=== PATIENT | female | born 1955 | race Two or more races ===

== ENCOUNTER 2022-11-04 10:42 | Emergency (ER) | payer MEDICARE, OTHER ==
[~2022-11-04] VITALS: Ht 157.5 cm; Wt 68.0 kg
--- NOTE | 2022-11-04 11:00 | NUR ---
[facility] C/O WORSENING MID-BACK, SHOULDER & NECK PAIN S/P FELL OUT OF BED LAST 11/01
[2022-11-04] MEDS ORDERED: LIDOCAINE 5% (PATCH) 1 EA PATCH TP SCH (11:30)
[2022-11-04] MEDS ORDERED: CYCLOBENZAPRINE 10 MG TABLET PO ONE (11:30)
[2022-11-04] MEDS ORDERED: ACETAMINOPHEN 325 MG TABLET PO ONE (11:30)
[2022-11-04] MEDS ORDERED: ACETAMINOPHEN 325 MG TABLET ONE (11:36)
[2022-11-04] MEDS ORDERED: LIDOCAINE 5% (PATCH) 1 EA PATCH TP ONE (11:36)
[2022-11-04] MEDS ORDERED: CYCLOBENZAPRINE 10 MG TABLET ONE (11:37)
--- NOTE | 2022-11-04 12:15 | NUR ---
[facility] CALLED FOR TRANSPORT, ETA 30-45 MIN
--- NOTE | 2022-11-04 12:22 | NUR ---
facility made aware of the patients CT. ready to go back if discharge
[2022-11-04] MEDS ORDERED: CYCL5TAB PO (12:33)
--- NOTE | 2022-11-04 13:26 | NUR ---
transported back to facility via [facility]. stable condition.
[2022-11-04 13:27] VITALS: BP 152/69
== END 2022-11-04 13:27 ==
LOC: ER 10:42
DX: S39.012A Strain of muscle, fascia and tendon of lower back, initial encounter (principal); I10 Essential (primary) hypertension; Z88.2 Allergy status to sulfonamides; Z88.6 Allergy status to analgesic agent; Z91.040 Latex allergy status; W06.XXXA Fall from bed, initial encounter; Y93.89 Activity, other specified; Y92.099 Unspecified place in other non-institutional residence as the place of occurrence of the external cause; Y99.8 Other external cause status
CPT/HCPCS: 72131-TC

== ENCOUNTER 2023-07-23 08:31 | Inpatient (IN) | payer BC, OTHER ==
[~2023-07-23] VITALS: Ht 157.5 cm; Wt 70.3 kg
[~2023-07-23 08:31] MED LIST: ATOR40TA PO; CARB1TAB21 PO; CHLO25TA2 PO; CLON0.1T PO; CLOT15CR5 TP; CYCL5TAB PO; DIVA-78 PO; DIVA250T47 PO; DOCU-141 PO; EMPA10TA PO; EPIN0.3A4 IM; GLIM4TAB37 PO; HYDR-3972 PO; HYDR-4076 PO; LORA-259 PO; LOSA100T31 PO; METF-440 PO; MIRT-90 PO; NITR100C6 PO; NYST15CR TP; PREG50CA PO
[2023-07-23] MEDS ORDERED: IV NS 0.9% 1,000 ML BAG IV ONE (09:30)
[2023-07-23] MEDS ORDERED: MORPHINE SULFATE INJ 2 MG/ML DISP.SYRIN IV ONE (09:30)
[2023-07-23] MEDS ORDERED: MORPHINE SULFATE INJ 4 MG/ML DISP.SYRIN ONE (09:32)
[2023-07-23 09:36] LABS: BASOPHILS % (AUTO) 0.5 % (0.0-2.0); EOSINOPHILS # (AUTO) 0.1 K/uL (0.0-0.7); EOSINOPHILS % (AUTO) 1.7 % (0.0-6.0); HEMATOCRIT 37 % (33-45); HEMOGLOBIN 11.8 g/dL (11.5-14.8); LYMPHOCYTES # (AUTO) 1.8 K/uL (0.8-4.8); LYMPHOCYTES % (AUTO) 31.7 % (20.0-44.0); MEAN CORPUSCULAR HEMOGLOBIN 28 PG (26.0-33.0); MEAN CORPUSCULAR HGB CONC 32 g/dl (31.0-36.0); MEAN CORPUSCULAR VOLUME 88 fL (82-100); MONOCYTES # (AUTO) 0.4 K/uL (0.1-1.30); MONOCYTES % (AUTO) 7.1 % (2.0-12.0); NEUTROPHILS # (AUTO) 3.3 K/uL (1.8-8.9); PLATELET COUNT (AUTO) 253 K/uL (150-450); RED BLOOD CELL COUNT(AUTO) 4.17 MIL/uL (4.0-5.2); RED CELL DISTRIBUTION WIDTH 15.1 % (11.5-15.0); WHITE BLOOD COUNT (AUTO) 5.7 K/uL (4.3-11.0)
[2023-07-23 09:38] LABS: APPEARANCE,URINE CLEAR (CLEAR); BILIRUBIN,URINE NEGATIVE (NEGATIVE); BLOOD, URINE NEGATIVE Ery/uL (NEGATIVE); COLOR,URINE YELLOW (YELLOW); KETONES,URINE NEGATIVE (NEGATIVE); LEUKOCYTE ESTERASE ,URINE TRACE (NEGATIVE); NITRITE, URINE NEGATIVE (NEGATIVE); PROTEIN,URINE TRACE mg/dl (NEGATIVE); UGLUCOSE 3+ mg/dL (NEGATIVE); UROBILINOGEN,URINE 0.2 EU/dL (0.2)
[2023-07-23 09:41] LABS: ADD URINE CULTURE NO; BACTERIA,URINE Rare /HPF (None Seen); RBC,URINE 0-2 /HPF (0-2); SQUAMOUS EPITHELIAL CELL,UR Few /HPF (None Seen)
[2023-07-23 09:54] LABS: CALCIUM, SERUM 9.5 mg/dL (8.5-10.1); CREATININE 1.4 mg/dL (0.6-1.3); POTASSIUM 4.1 mmol/L (3.5-5.1)
[2023-07-23 09:59] LABS: ALBUMIN 3.5 g/dL (3.4-5.0); BILIRUBIN,DIRECT 0.1 mg/dL (0.0-0.2); BILIRUBIN,TOTAL 0.4 mg/dL (0.2-1.0); TOTAL PROTEIN, SERUM 7.7 g/dL (6.4-8.2)
[2023-07-23] MEDS ORDERED: SENN-261 PO (10:57)
[2023-07-23] MEDS ORDERED: INSU100V7 SQ (10:57)
[2023-07-23] MEDS ORDERED: HYDR-500 PO (10:57)
[2023-07-23] MEDS ORDERED: EMPA10TA PO (10:57)
[2023-07-23] MEDS ORDERED: ONDA4TAB11 PO (10:57)
[2023-07-23] MEDS ORDERED: OXYC5TAB3 PO (10:57)
[2023-07-23] MEDS ORDERED: TACR100O2 TP (10:57)
[2023-07-23] MEDS ORDERED: ENOXAPARIN SODIUM 40 MG/0.4 ML DISP.SYRIN SQ ONE ×2 (11:00→11:47)
[2023-07-23 16:00] VITALS: BP 131/82; TEMP 97.5; O2SAT 98
[2023-07-23] MEDS ORDERED: DEXTROSE 50%-WATER 50 ML DISP.SYRIN IV PRN ×2 (16:00→18:00)
[2023-07-23] MEDS ORDERED: INSULIN REGULAR, HUMAN 100 UNIT/ML 3 ML VIAL SQ PRN (16:00)
[2023-07-23] MEDS: MORPHINE SULFATE INJ 4 MG/ML DISP.SYRIN IV PRN ×2 (16:06→20:46)
[2023-07-23] MEDS ORDERED: BLOOD SUGAR DIAGNOSTIC 1 EACH STRIP IN SCH (17:30)
[2023-07-23] MEDS ORDERED: ONDANSETRON HCL/PF 4 MG/2 ML VIAL IVP PRN (18:00)
[2023-07-23] MEDS: IV NS 0.9% 1,000 ML IV PRN (18:00)
[2023-07-23] MEDS ORDERED: ACETAMINOPHEN 325 MG TABLET PO PRN (18:00)
[2023-07-23] MEDS ORDERED: TEMAZEPAM 15 MG CAPSULE PO PRN (18:00)
[2023-07-23] MEDS ORDERED: Z GUARD REMEDY 4 OZ OINT TP PRN (18:00)
[2023-07-23] MEDS ORDERED: MAGNESIUM HYDROXIDE 30 ML UDC PO PRN (18:00)
[2023-07-23] MEDS ORDERED: MAG HYDROX/AL HYDROX/SIMETH 30 ML UDC PO PRN (18:00)
[2023-07-23] MEDS: ENOXAPARIN SODIUM 30 MG/0.3 ML DISP.SYRIN SQ SCH (18:00)
[2023-07-23] MEDS ORDERED: ONDANSETRON 4 MG TAB.RAPDIS PO PRN (18:30)
[2023-07-23] MEDS ORDERED: LORAZEPAM 1 MG TABLET PO PRN (18:30)
[2023-07-23] MEDS ORDERED: HOME MED (JARDIANCE 10MG) XX SCH (18:30)
[2023-07-23] MEDS ORDERED: DOCUSATE SODIUM 100 MG CAPSULE PO PRN (18:30)
[2023-07-23] MEDS ORDERED: hydrOXYzine 10 MG TABLET PO PRN (18:30)
[2023-07-23] MEDS ORDERED: CYCLOBENZAPRINE 10 MG TABLET PO PRN (18:30)
[2023-07-23 20:00] VITALS: BP 155/74; TEMP 97.7; O2SAT 100
[2023-07-23] MEDS: MIRTAZAPINE 15 MG TABLET PO SCH (21:09)
[2023-07-23] MEDS: ATORVASTATIN 40 MG TABLET PO SCH (21:09)
[2023-07-23] MEDS: INSULIN REGULAR, HUMAN 100 UNIT/ML 3 ML VIAL SQ PRN (21:13)
[2023-07-23] MEDS: INSULIN GLARGINE, 100 UNIT/ML CARTRIDGE SQ SCH (21:14)
[2023-07-23] MEDS: BLOOD SUGAR DIAGNOSTIC 1 EACH STRIP IN SCH (21:17)
[2023-07-24 04:00] VITALS: BP 120/67; TEMP 97.7; O2SAT 99
[2023-07-24] MEDS: IV NS 0.9% 1,000 ML IV PRN (06:11)
[2023-07-24] MEDS: BLOOD SUGAR DIAGNOSTIC 1 EACH STRIP IN SCH ×4 (06:31→22:55)
[2023-07-24 07:45] LABS: CREATININE 0.8 mg/dL (0.6-1.3); MAGNESIUM 1.7 mg/dL (1.8-2.4); PHOSPHORUS 3.7 mg/dL (2.5-4.9); POTASSIUM 4.6 mmol/L (3.5-5.1)
[2023-07-24 08:00] VITALS: BP 153/56; TEMP 98.6; O2SAT 99
[2023-07-24] MEDS: DIVALPROEX SODIUM 250 MG TABLET.DR PO SCH (08:45)
[2023-07-24] MEDS: PANTOPRAZOLE 40 MG TABLET.DR PO SCH (08:45)
[2023-07-24] MEDS: PREGABALIN 25 MG CAPSULE PO SCH ×3 (08:45→17:10)
[2023-07-24] MEDS: CARBIDOPA/LEVODOPA 25/100 MG 1 UDTAB PO SCH ×2 (08:45→17:10)
[2023-07-24] MEDS: GLIMEPIRIDE 4 MG TABLET PO SCH (08:45)
[2023-07-24] MEDS: DIVALPROEX SODIUM 500 MG TABLET.DR PO SCH ×2 (08:45→17:10)
[2023-07-24] MEDS: SENNOSIDES 8.6 MG TABLET PO SCH (08:45)
[2023-07-24 08:50] LABS: BASOPHILS % (AUTO) 0.4 % (0.0-2.0); EOSINOPHILS # (AUTO) 0.1 K/uL (0.0-0.7); EOSINOPHILS % (AUTO) 2.3 % (0.0-6.0); HEMATOCRIT 34 % (33-45); LYMPHOCYTES # (AUTO) 1.4 K/uL (0.8-4.8); LYMPHOCYTES % (AUTO) 27.2 % (20.0-44.0); MEAN CORPUSCULAR HEMOGLOBIN 28 PG (26.0-33.0); MEAN CORPUSCULAR HGB CONC 33 g/dl (31.0-36.0); MEAN CORPUSCULAR VOLUME 87 fL (82-100); MONOCYTES # (AUTO) 0.4 K/uL (0.1-1.30); MONOCYTES % (AUTO) 8.3 % (2.0-12.0); NEUTROPHILS # (AUTO) 3.1 K/uL (1.8-8.9); NEUTROPHILS % (AUTO) 61.8 % (43.0-81.0); PLATELET COUNT (AUTO) 206 K/uL (150-450); RED BLOOD CELL COUNT(AUTO) 3.87 MIL/uL (4.0-5.2); RED CELL DISTRIBUTION WIDTH 15.1 % (11.5-15.0)
[2023-07-24 09:18] LABS: THYROID STIMULATING HORMONE 1.991 uIU/mL (0.358-3.74)
[2023-07-24] MEDS: MORPHINE SULFATE INJ 4 MG/ML DISP.SYRIN IV PRN (10:00)
[2023-07-24] MEDS ORDERED: MAGNESIUM OXIDE 400 MG TABLET PO ONE (10:00)
[2023-07-24] MEDS: CLOTRIMAZOLE/BETAMETASONE DIPROPIONATE 15 GM TUBE TP SCH (10:03)
[2023-07-24] MEDS: NYSTATIN CREAM 15 GM TUBE TP SCH ×2 (10:03→17:10)
[2023-07-24] MEDS ORDERED: CEFTRIAXONE 1 G in IV D5W 50 ML IV SCH (12:00)
[2023-07-24] MEDS: INSULIN REGULAR, HUMAN 100 UNIT/ML 3 ML VIAL SQ PRN ×3 (12:48→22:58)
[2023-07-24] MEDS ORDERED: METRONIDAZOLE 500MG/ NS 100ML 500 MG in PREMIX 1 EA IV SCH (13:00)
[2023-07-24 16:00] VITALS: BP 138/67; TEMP 97.7; O2SAT 97
[2023-07-24] MEDS: ENOXAPARIN SODIUM 30 MG/0.3 ML DISP.SYRIN SQ SCH (17:10)
[2023-07-24] MEDS: ATORVASTATIN 40 MG TABLET PO SCH (21:14)
[2023-07-24] MEDS: HYDROCODONE/APAP 5/325MG TABLET PO PRN (21:15)
[2023-07-24] MEDS: MIRTAZAPINE 15 MG TABLET PO SCH (22:45)
[2023-07-24] MEDS: INSULIN GLARGINE, 100 UNIT/ML CARTRIDGE SQ SCH (23:00)
[2023-07-25] VITALS: BP 118/60; TEMP 98.8; O2SAT 99
[2023-07-25 07:04] LABS: BASOPHILS % (AUTO) 0.5 % (0.0-2.0); EOSINOPHILS # (AUTO) 0.2 K/uL (0.0-0.7); HEMATOCRIT 36 % (33-45); HEMOGLOBIN 11.6 g/dL (11.5-14.8); LYMPHOCYTES # (AUTO) 1.4 K/uL (0.8-4.8); LYMPHOCYTES % (AUTO) 25.3 % (20.0-44.0); MEAN CORPUSCULAR HEMOGLOBIN 29 PG (26.0-33.0); MEAN CORPUSCULAR HGB CONC 33 g/dl (31.0-36.0); MEAN CORPUSCULAR VOLUME 88 fL (82-100); MONOCYTES # (AUTO) 0.4 K/uL (0.1-1.30); MONOCYTES % (AUTO) 7.5 % (2.0-12.0); NEUTROPHILS # (AUTO) 3.6 K/uL (1.8-8.9); NEUTROPHILS % (AUTO) 63.7 % (43.0-81.0); PLATELET COUNT (AUTO) 227 K/uL (150-450); RED BLOOD CELL COUNT(AUTO) 4.05 MIL/uL (4.0-5.2); RED CELL DISTRIBUTION WIDTH 15.3 % (11.5-15.0); WHITE BLOOD COUNT (AUTO) 5.7 K/uL (4.3-11.0)
[2023-07-25 07:32] LABS: CALCIUM, SERUM 9.5 mg/dL (8.5-10.1); MAGNESIUM 1.8 mg/dL (1.8-2.4); POTASSIUM 3.9 mmol/L (3.5-5.1)
[2023-07-25 08:00] VITALS: BP 133/83; TEMP 98; O2SAT 98
[2023-07-25] MEDS: DIVALPROEX SODIUM 500 MG TABLET.DR PO SCH ×2 (08:33→17:05)
[2023-07-25] MEDS: GLIMEPIRIDE 4 MG TABLET PO SCH (08:33)
[2023-07-25] MEDS: DIVALPROEX SODIUM 250 MG TABLET.DR PO SCH (08:33)
[2023-07-25] MEDS: CARBIDOPA/LEVODOPA 25/100 MG 1 UDTAB PO SCH ×2 (08:33→17:04)
[2023-07-25] MEDS: PANTOPRAZOLE 40 MG TABLET.DR PO SCH (08:33)
[2023-07-25] MEDS: PREGABALIN 25 MG CAPSULE PO SCH ×3 (08:34→17:04)
[2023-07-25] MEDS: HYDROCODONE/APAP 5/325MG TABLET PO PRN ×2 (08:34→17:05)
[2023-07-25] MEDS: SENNOSIDES 8.6 MG TABLET PO SCH (08:36)
[2023-07-25] MEDS: BLOOD SUGAR DIAGNOSTIC 1 EACH STRIP IN SCH ×4 (08:50→22:10)
[2023-07-25] MEDS: CLOTRIMAZOLE/BETAMETASONE DIPROPIONATE 15 GM TUBE TP SCH (08:59)
[2023-07-25] MEDS: NYSTATIN CREAM 15 GM TUBE TP SCH ×2 (08:59→17:07)
[2023-07-25] MEDS: INSULIN REGULAR, HUMAN 100 UNIT/ML 3 ML VIAL SQ PRN ×5 (09:22→22:11)
[2023-07-25 16:00] VITALS: BP 128/62; TEMP 98.8; O2SAT 99
[2023-07-25] MEDS: ENOXAPARIN SODIUM 30 MG/0.3 ML DISP.SYRIN SQ SCH (17:06)
[2023-07-25] MEDS: MIRTAZAPINE 15 MG TABLET PO SCH (21:34)
[2023-07-25] MEDS: ATORVASTATIN 40 MG TABLET PO SCH (21:34)
[2023-07-25] MEDS: INSULIN GLARGINE, 100 UNIT/ML CARTRIDGE SQ SCH ×2 (21:51→22:11)
[2023-07-26] VITALS: BP 117/59; TEMP 98.8; O2SAT 99
[2023-07-26 07:00] LABS: BASOPHILS % (AUTO) 0.5 % (0.0-2.0); EOSINOPHILS # (AUTO) 0.1 K/uL (0.0-0.7); HEMATOCRIT 36 % (33-45); HEMOGLOBIN 11.9 g/dL (11.5-14.8); LYMPHOCYTES # (AUTO) 1.4 K/uL (0.8-4.8); LYMPHOCYTES % (AUTO) 30.8 % (20.0-44.0); MEAN CORPUSCULAR HEMOGLOBIN 29 PG (26.0-33.0); MEAN CORPUSCULAR HGB CONC 33 g/dl (31.0-36.0); MEAN CORPUSCULAR VOLUME 87 fL (82-100); MONOCYTES # (AUTO) 0.5 K/uL (0.1-1.30); MONOCYTES % (AUTO) 10.7 % (2.0-12.0); NEUTROPHILS # (AUTO) 2.5 K/uL (1.8-8.9); PLATELET COUNT (AUTO) 215 K/uL (150-450); RED BLOOD CELL COUNT(AUTO) 4.11 MIL/uL (4.0-5.2); RED CELL DISTRIBUTION WIDTH 15.5 % (11.5-15.0); WHITE BLOOD COUNT (AUTO) 4.6 K/uL (4.3-11.0)
[2023-07-26 07:12] LABS: CALCIUM, SERUM 9.5 mg/dL (8.5-10.1); POTASSIUM 3.9 mmol/L (3.5-5.1)
[2023-07-26] MEDS: PANTOPRAZOLE 40 MG TABLET.DR PO SCH (07:35)
[2023-07-26] MEDS: DIVALPROEX SODIUM 500 MG TABLET.DR PO SCH (07:35)
[2023-07-26 08:00] VITALS: BP 148/74; TEMP 98.4; O2SAT 99
[2023-07-26] MEDS: BLOOD SUGAR DIAGNOSTIC 1 EACH STRIP IN SCH ×2 (08:04→12:45)
[2023-07-26] MEDS: INSULIN REGULAR, HUMAN 100 UNIT/ML 3 ML VIAL SQ PRN ×2 (08:09→12:46)
[2023-07-26] MEDS: CLOTRIMAZOLE/BETAMETASONE DIPROPIONATE 15 GM TUBE TP SCH (08:14)
[2023-07-26] MEDS: CARBIDOPA/LEVODOPA 25/100 MG 1 UDTAB PO SCH (08:14)
[2023-07-26] MEDS: NYSTATIN CREAM 15 GM TUBE TP SCH (08:14)
[2023-07-26] MEDS: PREGABALIN 25 MG CAPSULE PO SCH ×2 (08:14→13:19)
[2023-07-26] MEDS: DIVALPROEX SODIUM 250 MG TABLET.DR PO SCH (08:14)
[2023-07-26] MEDS: SENNOSIDES 8.6 MG TABLET PO SCH (08:15)
[2023-07-26] MEDS: GLIMEPIRIDE 4 MG TABLET PO SCH (08:17)
[2023-07-26] MEDS ORDERED: OXYC5CAP18 PO (10:00)
[2023-07-26] MEDS: HYDROCODONE/APAP 5/325MG TABLET PO PRN (10:14)
== END 2023-07-26 15:00 | disposition home health service (06) | DRG 640 ==
LOC: ER 08:36 → TELE1 14:21 → MEDSG1 17:43
PROVIDERS: ADMIT Nurse Practitioner Acute Care; ATTEND Nurse Practitioner Acute Care
DX: E86.0 Dehydration (principal); N17.0 Acute kidney failure with tubular necrosis; I82.611 Acute embolism and thrombosis of superficial veins of right upper extremity; E78.5 Hyperlipidemia, unspecified; G20 Parkinson's disease; G89.29 Other chronic pain; I10 Essential (primary) hypertension; Z88.2 Allergy status to sulfonamides; Z79.4 Long term (current) use of insulin; E11.65 Type 2 diabetes mellitus with hyperglycemia; M19.90 Unspecified osteoarthritis, unspecified site; R53.1 Weakness; R19.7 Diarrhea, unspecified; W19.XXXA Unspecified fall, initial encounter; Y93.9 Activity, unspecified; Y92.89 Other specified places as the place of occurrence of the external cause; Z79.84 Long term (current) use of oral hypoglycemic drugs
CPT/HCPCS: 36415; 71045-TC; 73060-TC; 73090-TC; 80048-TC; 80061-TC; 80076-TC; 81001; 82962-TC; 83690-TC; 83735-TC; 84100-TC; 84443-TC; 85025-TC; 87081-TC; 93971-TC; 97110-TC; 97112-TC; 97116-TC; 97530-TC; A4223; G0378; J1650; J1815; J2270; J7030; Q0177

== ENCOUNTER 2023-08-09 11:29 | Inpatient (IN) | payer BC, OTHER ==
[~2023-08-09] VITALS: Ht 157.5 cm; Wt 73.5 kg
[~2023-08-09 11:29] MED LIST changes: -CLON0.1T PO; -HYDR-3972 PO; -HYDR-4076 PO; +HYDR-500 PO; +INSU100V7 SQ; -NITR100C6 PO; +ONDA4TAB11 PO; +OXYC5CAP18 PO; +OXYC5TAB3 PO; +SENN-261 PO; +TACR100O2 TP
[2023-08-09] MEDS ORDERED: HYDROCODONE/APAP 5/325MG TABLET ONE (12:29)
[2023-08-09] MEDS ORDERED: HYDROCODONE/APAP 5/325MG TABLET PO ONE (12:30)
[2023-08-09] MEDS ORDERED: oxyCODONE IR immediate release 5 MG ONE (13:43)
[2023-08-09] MEDS: oxyCODONE IR immediate release 5 MG PO PRN (13:47)
[2023-08-09 15:36] LABS: BASOPHILS % (AUTO) 0.3 % (0.0-2.0); EOSINOPHILS % (AUTO) 0.7 % (0.0-6.0); HEMATOCRIT 35 % (33-45); HEMOGLOBIN 11.7 g/dL (11.5-14.8); LYMPHOCYTES # (AUTO) 1.6 K/uL (0.8-4.8); LYMPHOCYTES % (AUTO) 23.9 % (20.0-44.0); MEAN CORPUSCULAR HEMOGLOBIN 29 PG (26.0-33.0); MEAN CORPUSCULAR HGB CONC 34 g/dl (31.0-36.0); MEAN CORPUSCULAR VOLUME 87 fL (82-100); MONOCYTES # (AUTO) 0.4 K/uL (0.1-1.30); MONOCYTES % (AUTO) 5.5 % (2.0-12.0); NEUTROPHILS # (AUTO) 4.6 K/uL (1.8-8.9); NEUTROPHILS % (AUTO) 69.6 % (43.0-81.0); PLATELET COUNT (AUTO) 235 K/uL (150-450); RED BLOOD CELL COUNT(AUTO) 3.98 MIL/uL (4.0-5.2); RED CELL DISTRIBUTION WIDTH 15.7 % (11.5-15.0); WHITE BLOOD COUNT (AUTO) 6.6 K/uL (4.3-11.0)
[2023-08-09 15:48] LABS: CALCIUM, SERUM 9.8 mg/dL (8.5-10.1); CARBON DIOXIDE 28 mmol/L (21-32); CHLORIDE 98 mmol/L (98-107); CREATININE 1.2 mg/dL (0.6-1.3); GLUCOSE 149 mg/dL (74-106); SODIUM SERUM 137 mmol/L (136-145); UREA NITROGEN, BLOOD 21 mg/dL (7-18)
[2023-08-09 15:52] LABS: PARTIAL THROMBOPLASTIN TIME 27.3 SEC (24.3-34.3); PROTHROMBIN TIME 10.5 SECS (9.2-11.1)
[2023-08-09 16:29] LABS: ANISOCYTOSIS 1+; EOSINOPHILS % (MANUAL) 3 % (0-4); LYMPHOCYTES % (MANUAL) 20 % (16-48); MONOCYTES % (MANUAL) 9 % (0-11.0); NEUTROPHILS % (MANUAL) 68 (42-76); PLATELET ESTIMATE ADEQUATE
[2023-08-09] MEDS ORDERED: OXYC5TAB3 PO (16:31)
[2023-08-09] MEDS ORDERED: TRIA80CR12 TP (16:31)
[2023-08-09] MEDS ORDERED: BLOO-668 IN (16:32)
[2023-08-09 20:08] LABS: APPEARANCE,URINE CLEAR (CLEAR); BILIRUBIN,URINE NEGATIVE (NEGATIVE); BLOOD, URINE NEGATIVE Ery/uL (NEGATIVE); COLOR,URINE YELLOW (YELLOW); KETONES,URINE TRACE mg/dL (NEGATIVE); LEUKOCYTE ESTERASE ,URINE NEGATIVE (NEGATIVE); NITRITE, URINE NEGATIVE (NEGATIVE); PH,URINE 6.5 (5.0-8.0); PROTEIN,URINE TRACE mg/dl (NEGATIVE); UGLUCOSE 3+ mg/dL (NEGATIVE); UROBILINOGEN,URINE 0.2 EU/dL (0.2)
[2023-08-09 20:17] LABS: ADD URINE CULTURE YES; BACTERIA,URINE 2+ /HPF (None Seen); MUCUS,URINE Few /LPF (None Seen); RBC,URINE 0-2 /HPF (0-2); WBC,URINE 0-2 /HPF (0-3)
[2023-08-09] MEDS ORDERED: ACETAMINOPHEN 325 MG TABLET PO PRN (20:30)
[2023-08-09] MEDS ORDERED: MAGNESIUM HYDROXIDE 30 ML UDC PO PRN (20:30)
[2023-08-09] MEDS ORDERED: DOCUSATE SODIUM 100 MG CAPSULE PO PRN (20:30)
[2023-08-09] MEDS ORDERED: HYDROCODONE/APAP 5/325MG TABLET PO PRN (20:30)
[2023-08-09] MEDS ORDERED: Z GUARD REMEDY 4 OZ OINT TP PRN (20:30)
[2023-08-09] MEDS ORDERED: LORAZEPAM 1 MG TABLET PO PRN (20:30)
[2023-08-09] MEDS ORDERED: DEXTROSE 50%-WATER 50 ML DISP.SYRIN IV PRN (20:30)
[2023-08-09] MEDS ORDERED: ONDANSETRON HCL/PF 4 MG/2 ML VIAL IVP PRN (20:30)
[2023-08-09 21:37] VITALS: BP 144/85; TEMP 98.2; O2SAT 99
[2023-08-09] MEDS: BLOOD SUGAR DIAGNOSTIC 1 EACH STRIP IN SCH (22:22)
[2023-08-09] MEDS: ATORVASTATIN 40 MG TABLET PO SCH (22:22)
[2023-08-09] MEDS: MIRTAZAPINE 15 MG TABLET PO SCH (22:22)
[2023-08-09] MEDS: INSULIN REGULAR, HUMAN 100 UNIT/ML 3 ML VIAL SQ PRN (22:25)
[2023-08-09] MEDS: ENOXAPARIN SODIUM 40 MG/0.4 ML DISP.SYRIN SQ SCH (22:25)
[2023-08-10] VITALS: BP 131/60; TEMP 98; O2SAT 98
[2023-08-10] MEDS: IV NS 0.9% 1,000 ML IV PRN ×2 (03:42→22:06)
[2023-08-10 04:00] VITALS: BP 121/76; TEMP 97.7; O2SAT 98
[2023-08-10 07:26] LABS: BASOPHILS % (AUTO) 0.3 % (0.0-2.0); EOSINOPHILS # (AUTO) 0.1 K/uL (0.0-0.7); EOSINOPHILS % (AUTO) 2.9 % (0.0-6.0); HEMATOCRIT 27 % (33-45); HEMOGLOBIN 9.1 g/dL (11.5-14.8); LYMPHOCYTES # (AUTO) 1.3 K/uL (0.8-4.8); LYMPHOCYTES % (AUTO) 31.9 % (20.0-44.0); MEAN CORPUSCULAR HEMOGLOBIN 29 PG (26.0-33.0); MEAN CORPUSCULAR HGB CONC 34 g/dl (31.0-36.0); MEAN CORPUSCULAR VOLUME 87 fL (82-100); MONOCYTES # (AUTO) 0.3 K/uL (0.1-1.30); MONOCYTES % (AUTO) 8.4 % (2.0-12.0); NEUTROPHILS # (AUTO) 2.3 K/uL (1.8-8.9); NEUTROPHILS % (AUTO) 56.5 % (43.0-81.0); PLATELET COUNT (AUTO) 169 K/uL (150-450); RED BLOOD CELL COUNT(AUTO) 3.15 MIL/uL (4.0-5.2); RED CELL DISTRIBUTION WIDTH 15.8 % (11.5-15.0); WHITE BLOOD COUNT (AUTO) 4.1 K/uL (4.3-11.0)
[2023-08-10] MEDS: BLOOD SUGAR DIAGNOSTIC 1 EACH STRIP IN SCH ×4 (07:49→22:19)
[2023-08-10] MEDS: INSULIN REGULAR, HUMAN 100 UNIT/ML 3 ML VIAL SQ PRN ×4 (07:52→22:17)
[2023-08-10 07:55] LABS: CALCIUM, SERUM 6.8 mg/dL (8.5-10.1); CREATININE 0.7 mg/dL (0.6-1.3); MAGNESIUM 1.3 mg/dL (1.8-2.4); PHOSPHORUS 3.1 mg/dL (2.5-4.9)
[2023-08-10 08:00] VITALS: BP 114/85; TEMP 98.8; O2SAT 98
[2023-08-10 08:10] LABS: POTASSIUM 2.8 mmol/L (3.5-5.1)
[2023-08-10 08:11] LABS: THYROID STIMULATING HORMONE 0.996 uIU/mL (0.358-3.74)
[2023-08-10] MEDS: CARBIDOPA/LEVODOPA 25/100 MG 1 UDTAB PO SCH ×2 (08:18→16:31)
[2023-08-10] MEDS: PREGABALIN 25 MG CAPSULE PO SCH ×3 (08:18→16:31)
[2023-08-10] MEDS: SENNOSIDES 8.6 MG TABLET PO SCH (08:18)
[2023-08-10] MEDS: DIVALPROEX SODIUM 500 MG TABLET.DR PO SCH ×2 (08:18→16:31)
[2023-08-10] MEDS: ASPIRIN 81 MG TAB.CHEW PO SCH (08:19)
[2023-08-10] MEDS: LOSARTAN POTASSIUM 50 MG TABLET PO SCH (08:19)
[2023-08-10] MEDS: PANTOPRAZOLE 40 MG TABLET.DR PO SCH (08:19)
[2023-08-10] MEDS: CLOTRIMAZOLE/BETAMETASONE DIPROPIONATE 15 GM TUBE TP SCH (08:20)
[2023-08-10] MEDS ORDERED: MAGNESIUM OXIDE 400 MG TABLET PO ONE ×2 (09:00→11:00)
[2023-08-10] MEDS: POTASSIUM CHLORIDE 20 MEQ TAB.PRT.SR PO SCH ×3 (09:11→11:26)
[2023-08-10 12:00] VITALS: BP 152/71; TEMP 97.8; O2SAT 98
[2023-08-10 16:00] VITALS: BP 150/72; TEMP 98.6; O2SAT 98
[2023-08-10 20:00] VITALS: BP 132/66; TEMP 98.1; O2SAT 100
[2023-08-10] MEDS: ENOXAPARIN SODIUM 40 MG/0.4 ML DISP.SYRIN SQ SCH (20:30)
[2023-08-10] MEDS: ATORVASTATIN 40 MG TABLET PO SCH (21:56)
[2023-08-10] MEDS: oxyCODONE IR immediate release 5 MG PO PRN (21:57)
[2023-08-10] MEDS: MIRTAZAPINE 15 MG TABLET PO SCH (21:58)
[2023-08-11] VITALS: BP 132/66; TEMP 98.1; O2SAT 100
[2023-08-11 04:00] VITALS: BP 127/70; TEMP 97.9; O2SAT 100
[2023-08-11 07:25] LABS: BASOPHILS % (AUTO) 0.3 % (0.0-2.0); EOSINOPHILS # (AUTO) 0.2 K/uL (0.0-0.7); EOSINOPHILS % (AUTO) 3.4 % (0.0-6.0); HEMATOCRIT 32 % (33-45); HEMOGLOBIN 10.7 g/dL (11.5-14.8); LYMPHOCYTES # (AUTO) 1.7 K/uL (0.8-4.8); LYMPHOCYTES % (AUTO) 36.3 % (20.0-44.0); MEAN CORPUSCULAR HEMOGLOBIN 29 PG (26.0-33.0); MEAN CORPUSCULAR HGB CONC 33 g/dl (31.0-36.0); MEAN CORPUSCULAR VOLUME 87 fL (82-100); MONOCYTES # (AUTO) 0.4 K/uL (0.1-1.30); MONOCYTES % (AUTO) 8.8 % (2.0-12.0); NEUTROPHILS # (AUTO) 2.3 K/uL (1.8-8.9); NEUTROPHILS % (AUTO) 51.2 % (43.0-81.0); PLATELET COUNT (AUTO) 194 K/uL (150-450); RED BLOOD CELL COUNT(AUTO) 3.71 MIL/uL (4.0-5.2); RED CELL DISTRIBUTION WIDTH 15.6 % (11.5-15.0); WHITE BLOOD COUNT (AUTO) 4.6 K/uL (4.3-11.0)
[2023-08-11] MEDS: BLOOD SUGAR DIAGNOSTIC 1 EACH STRIP IN SCH ×2 (07:45→11:51)
[2023-08-11] MEDS: DIVALPROEX SODIUM 500 MG TABLET.DR PO SCH (07:45)
[2023-08-11] MEDS: PANTOPRAZOLE 40 MG TABLET.DR PO SCH (07:45)
[2023-08-11 07:56] LABS: CALCIUM, SERUM 9.2 mg/dL (8.5-10.1); CREATININE 0.8 mg/dL (0.6-1.3); MAGNESIUM 2.2 mg/dL (1.8-2.4); PHOSPHORUS 3.6 mg/dL (2.5-4.9); POTASSIUM 4.1 mmol/L (3.5-5.1)
[2023-08-11 08:00] VITALS: BP 133/63; TEMP 98.2; O2SAT 96
[2023-08-11] MEDS: CARBIDOPA/LEVODOPA 25/100 MG 1 UDTAB PO SCH (08:36)
[2023-08-11] MEDS: ASPIRIN 81 MG TAB.CHEW PO SCH (08:36)
[2023-08-11] MEDS: LOSARTAN POTASSIUM 50 MG TABLET PO SCH (08:36)
[2023-08-11] MEDS: SENNOSIDES 8.6 MG TABLET PO SCH ×2 (08:37→08:57)
[2023-08-11] MEDS: PREGABALIN 25 MG CAPSULE PO SCH ×2 (08:37→12:34)
[2023-08-11] MEDS: CLOTRIMAZOLE/BETAMETASONE DIPROPIONATE 15 GM TUBE TP SCH (08:37)
[2023-08-11] MEDS: INSULIN REGULAR, HUMAN 100 UNIT/ML 3 ML VIAL SQ PRN ×2 (08:42→11:53)
[2023-08-11] MEDS ORDERED: Fenofibrate 48 MG TABLET PO SCH (09:00)
[2023-08-11] MEDS: IV NS 0.9% 1,000 ML IV PRN (11:31)
[2023-08-11 12:00] VITALS: BP 140/72; TEMP 98.4; O2SAT 96
[2023-08-11] MEDS ORDERED: HYDR-3972 PO (12:22)
[2023-08-11] MEDS ORDERED: ASPI-1169 PO (12:22)
== END 2023-08-11 14:56 | DRG 103 ==
LOC: ER 11:47 → TELE1 19:41 → MEDSG1 08-11 11:18
PROVIDERS: ADMIT Nurse Practitioner Family; ATTEND Nurse Practitioner Family
DX: G43.109 Migraine with aura, not intractable, without status migrainosus (principal); E11.9 Type 2 diabetes mellitus without complications; I10 Essential (primary) hypertension; G89.29 Other chronic pain; Z79.4 Long term (current) use of insulin; Z79.84 Long term (current) use of oral hypoglycemic drugs; Z79.899 Other long term (current) drug therapy; G20 Parkinson's disease; E78.5 Hyperlipidemia, unspecified; F31.9 Bipolar disorder, unspecified; M16.10 Unilateral primary osteoarthritis, unspecified hip; Z88.6 Allergy status to analgesic agent; Z88.2 Allergy status to sulfonamides; Z91.041 Radiographic dye allergy status; R79.89 Other specified abnormal findings of blood chemistry; R29.700 NIHSS score 0
CPT/HCPCS: 36415; 70450-TC; 70544-TC; 70547-TC; 70551-TC; 71045-TC; 80048-TC; 80061-TC; 81001; 82962-TC; 83735-TC; 84100-TC; 84443-TC; 84484-TC; 85025-TC; 85730-TC; 87081-TC; 87086-TC; 93307-TC; 93880-TC; 97110-TC; 97112-TC; 97116-TC; 97530-TC; A4223; G0378; J1650; J1815; J7030

== ENCOUNTER → 2023-12-12 | Emergency (ER) | payer BC, OTHER ==
[~2023-12-12] VITALS: Ht 157.5 cm; Wt 77.1 kg
[~2023-12-12] MED LIST changes: +ACETAMINOPHEN ES 500 MG TABLET ONE; +ASPI-1169 PO; +BLOO-668 IN; -CYCL5TAB PO; +HYDR-3972 PO; -OXYC5CAP18 PO; -OXYC5TAB3 PO; +TRIA80CR12 TP
[2023-12-12 01:57] VITALS: BP 141/71; TEMP 97.7; O2SAT 99
[2023-12-12] MEDS: ACETAMINOPHEN 325 MG TABLET PO ONE (02:27)
== END ==
LOC: ER 02:03
DX: S93.402A Sprain of unspecified ligament of left ankle, initial encounter (principal); S39.012A Strain of muscle, fascia and tendon of lower back, initial encounter; S73.102A Unspecified sprain of left hip, initial encounter; M51.26 Other intervertebral disc displacement, lumbar region; M25.531 Pain in right wrist; I10 Essential (primary) hypertension; E11.9 Type 2 diabetes mellitus without complications; Z88.2 Allergy status to sulfonamides; Z88.6 Allergy status to analgesic agent; Z88.8 Allergy status to other drugs, medicaments and biological substances; Z79.84 Long term (current) use of oral hypoglycemic drugs; Z79.899 Other long term (current) drug therapy; Z79.4 Long term (current) use of insulin; W18.30XA Fall on same level, unspecified, initial encounter; Y93.89 Activity, other specified; Y92.89 Other specified places as the place of occurrence of the external cause; Y99.8 Other external cause status
CPT/HCPCS: 72131-TC; 73110; 73502; 73610-TC

== ENCOUNTER 2024-11-06 19:56 | Emergency (ER) | payer MEDICARE, OTHER ==
[~2024-11-06] VITALS: Ht 157.5 cm; Wt 77.1 kg
[~2024-11-06 19:56] MED LIST changes: -ACETAMINOPHEN ES 500 MG TABLET ONE
[2024-11-06 21:16] LABS: BASOPHILS % (AUTO) 0.7 % (0.0-2.0); EOSINOPHILS # (AUTO) 0.2 K/uL (0.0-0.7); EOSINOPHILS % (AUTO) 3.8 % (0.0-6.0); HEMATOCRIT 30 % (33-45); LYMPHOCYTES # (AUTO) 2.2 K/uL (0.8-4.8); LYMPHOCYTES % (AUTO) 38.8 % (20.0-44.0); MEAN CORPUSCULAR HEMOGLOBIN 30 PG (26.0-33.0); MEAN CORPUSCULAR HGB CONC 34 g/dl (31.0-36.0); MEAN CORPUSCULAR VOLUME 89 fL (82-100); MONOCYTES # (AUTO) 0.5 K/uL (0.1-1.30); MONOCYTES % (AUTO) 8.7 % (2.0-12.0); NEUTROPHILS # (AUTO) 2.7 K/uL (1.8-8.9); PLATELET COUNT (AUTO) 161 K/uL (150-450); RED BLOOD CELL COUNT(AUTO) 3.34 MIL/uL (4.0-5.2); RED CELL DISTRIBUTION WIDTH 15.4 % (11.5-15.0); WHITE BLOOD COUNT (AUTO) 5.6 K/uL (4.3-11.0)
[2024-11-06 21:24] LABS: CALCIUM, SERUM 8.5 mg/dL (8.5-10.1); CREATININE 1.1 mg/dL (0.6-1.3); POTASSIUM 3.8 mmol/L (3.5-5.1)
[2024-11-06 21:41] LABS: APPEARANCE,URINE CLEAR (CLEAR); BILIRUBIN,URINE NEGATIVE (NEGATIVE); BLOOD, URINE NEGATIVE Ery/uL (NEGATIVE); COLOR,URINE YELLOW (YELLOW); KETONES,URINE NEGATIVE (NEGATIVE); LEUKOCYTE ESTERASE ,URINE NEGATIVE (NEGATIVE); NITRITE, URINE NEGATIVE (NEGATIVE); PROTEIN,URINE NEGATIVE (NEGATIVE); UGLUCOSE 3+ mg/dL (NEGATIVE); UROBILINOGEN,URINE 0.2 EU/dL (0.2)
[2024-11-06 21:47] LABS: ADD URINE CULTURE NO; BACTERIA,URINE None seen /HPF (None Seen); RBC,URINE 0-2 /HPF (0-2); SQUAMOUS EPITHELIAL CELL,UR Rare /HPF (None Seen); WBC,URINE 0-2 /HPF (0-3)
[2024-11-07 04:04] VITALS: BP 124/79; TEMP 98.2; O2SAT 98
== END 2024-11-07 04:04 ==
LOC: ER 20:05
DX: R33.9 Retention of urine, unspecified (principal); E11.9 Type 2 diabetes mellitus without complications; I10 Essential (primary) hypertension; Z79.4 Long term (current) use of insulin; Z79.621 Long term (current) use of calcineurin inhibitor; Z79.82 Long term (current) use of aspirin; Z79.84 Long term (current) use of oral hypoglycemic drugs; Z79.899 Other long term (current) drug therapy; Z88.2 Allergy status to sulfonamides; Z88.6 Allergy status to analgesic agent; Z88.8 Allergy status to other drugs, medicaments and biological substances; Z91.041 Radiographic dye allergy status; Z86.69 Personal history of other diseases of the nervous system and sense organs; Z87.39 Personal history of other diseases of the musculoskeletal system and connective tissue
CPT/HCPCS: 36415; 80048-TC; 81001; 85025-TC

== ENCOUNTER 2024-12-20 08:14 | Emergency (ER) | payer MEDICARE, OTHER ==
[~2024-12-20] VITALS: Ht 167.6 cm; Wt 77.1 kg
[2024-12-20 08:56] LABS: BASOPHILS % (AUTO) 0.2 % (0.0-2.0); EOSINOPHILS # (AUTO) 0.3 K/uL (0.0-0.7); EOSINOPHILS % (AUTO) 4.1 % (0.0-6.0); HEMATOCRIT 29 % (33-45); HEMOGLOBIN 10.4 g/dL (11.5-14.8); LYMPHOCYTES # (AUTO) 0.8 K/uL (0.8-4.8); LYMPHOCYTES % (AUTO) 10.8 % (20.0-44.0); MEAN CORPUSCULAR HEMOGLOBIN 32 PG (26.0-33.0); MEAN CORPUSCULAR HGB CONC 35 g/dl (31.0-36.0); MEAN CORPUSCULAR VOLUME 90 fL (82-100); MONOCYTES # (AUTO) 0.5 K/uL (0.1-1.30); MONOCYTES % (AUTO) 6.9 % (2.0-12.0); NEUTROPHILS # (AUTO) 5.9 K/uL (1.8-8.9); PLATELET COUNT (AUTO) 170 K/uL (150-450); RED BLOOD CELL COUNT(AUTO) 3.28 MIL/uL (4.0-5.2); RED CELL DISTRIBUTION WIDTH 15.9 % (11.5-15.0); WHITE BLOOD COUNT (AUTO) 7.6 K/uL (4.3-11.0)
[2024-12-20 09:12] LABS: BILIRUBIN,TOTAL 0.3 mg/dL (0.2-1.0); CALCIUM, SERUM 9.1 mg/dL (8.5-10.1); CREATININE 1.3 mg/dL (0.6-1.3); POTASSIUM 3.9 mmol/L (3.5-5.1); TOTAL PROTEIN, SERUM 7.2 g/dL (6.4-8.2)
[2024-12-20] MEDS ORDERED: ONDANSETRON HCL/PF 4 MG/2 ML VIAL ONE (09:45)
[2024-12-20] MEDS ORDERED: MORPHINE SULFATE INJ 4 MG/ML DISP.SYRIN ONE (09:45)
[2024-12-20 09:52] LABS: BAND % (MANUAL) 2 % (0.0-5.0); EOSINOPHILS % (MANUAL) 5 % (0-4); LYMPHOCYTES % (MANUAL) 11 % (16-48); MONOCYTES % (MANUAL) 3 % (0-11.0); MYELOCYTES % 1 % (0-0); NEUTROPHILS % (MANUAL) 78 (42-76); PLATELET ESTIMATE ADEQUATE; STOMATOCYTES 1+
[2024-12-20] MEDS: ONDANSETRON HCL/PF - ER 4 MG/2 ML VIAL IV ONE (09:52)
[2024-12-20] MEDS: MORPHINE SULFATE INJ 2 MG/ML DISP.SYRIN IV ONE (09:52)
[2024-12-20 11:00] VITALS: BP 127/70; TEMP 97.9; O2SAT 98
== END 2024-12-20 11:48 ==
LOC: ER 08:14
DX: G89.29 Other chronic pain (principal); E11.9 Type 2 diabetes mellitus without complications; M54.50 Low back pain, unspecified; I10 Essential (primary) hypertension; M47.816 Spondylosis without myelopathy or radiculopathy, lumbar region; Z79.4 Long term (current) use of insulin; Z79.621 Long term (current) use of calcineurin inhibitor; Z79.82 Long term (current) use of aspirin; Z79.84 Long term (current) use of oral hypoglycemic drugs; Z79.899 Other long term (current) drug therapy; Z87.440 Personal history of urinary (tract) infections; Z88.2 Allergy status to sulfonamides; Z88.6 Allergy status to analgesic agent; Z88.8 Allergy status to other drugs, medicaments and biological substances; Z91.041 Radiographic dye allergy status
CPT/HCPCS: 99285; 96374; 72131; 96375; 85025; 36415; 80053; 85007; J2270; J2405 ×2

== ENCOUNTER 2025-05-03 15:09 | Inpatient (IN) | payer MEDICARE, OTHER ==
[~2025-05-03] VITALS: Ht 154.9 cm; Wt 74.4 kg
[2025-05-03 15:56] LABS: BASOPHILS # (AUTO) 0.1 K/uL (0.0-0.2); BASOPHILS % (AUTO) 1.7 % (0.0-2.0); EOSINOPHILS # (AUTO) 0.1 K/uL (0.0-0.7); EOSINOPHILS % (AUTO) 1.8 % (0.0-6.0); HEMATOCRIT 28 % (33-45); HEMOGLOBIN 9.6 g/dL (11.5-14.8); LYMPHOCYTES # (AUTO) 1.5 K/uL (0.8-4.8); LYMPHOCYTES % (AUTO) 24.2 % (20.0-44.0); MEAN CORPUSCULAR HEMOGLOBIN 30 PG (26.0-33.0); MEAN CORPUSCULAR HGB CONC 34 g/dl (31.0-36.0); MEAN CORPUSCULAR VOLUME 89 fL (82-100); MONOCYTES # (AUTO) 0.4 K/uL (0.1-1.30); MONOCYTES % (AUTO) 6.5 % (2.0-12.0); NEUTROPHILS % (AUTO) 65.8 % (43.0-81.0); PLATELET COUNT (AUTO) 170 K/uL (150-450); RED BLOOD CELL COUNT(AUTO) 3.16 MIL/uL (4.0-5.2); WHITE BLOOD COUNT (AUTO) 6.1 K/uL (4.3-11.0)
[2025-05-03 16:10] LABS: CALCIUM, SERUM 8.9 mg/dL (8.5-10.1); CARBON DIOXIDE 32 mmol/L (21-32); CHLORIDE 101 mmol/L (98-107); CREATININE 1.4 mg/dL (0.6-1.3); GLUCOSE 113 mg/dL (74-106); SODIUM SERUM 138 mmol/L (136-145); UREA NITROGEN, BLOOD 33 mg/dL (7-18)
[2025-05-03 16:15] LABS: ALANINE AMINOTRANSFERASE 12 U/L (12-78); ALBUMIN 2.9 g/dL (3.4-5.0); ALKALINE PHOSPHATASE 71 U/L (46-116); ASPARTATE AMINOTRANSFERASE 16 U/L (15-37); BILIRUBIN,TOTAL 0.2 mg/dL (0.2-1.0); TOTAL PROTEIN, SERUM 7.2 g/dL (6.4-8.2)
[2025-05-03] MEDS ORDERED: IOHEXOL-300 100 ML VIAL IV ONE (16:15)
[2025-05-03] MEDS ORDERED: IV NS 0.9% 0 ML IV ONE (16:15)
[2025-05-03] MEDS ORDERED: TRAM50TA2 PO (16:30)
[2025-05-03] MEDS ORDERED: FURO20TA4 PO (16:30)
[2025-05-03] MEDS ORDERED: ASPI-1169 PO (16:30)
[2025-05-03] MEDS ORDERED: MULT-594 PO (16:30)
[2025-05-03] MEDS ORDERED: SERT25TA5 PO (16:30)
[2025-05-03] MEDS ORDERED: MIRT-91 PO (16:30)
[2025-05-03] MEDS ORDERED: SEMA0.25 SQ (16:30)
[2025-05-03] MEDS ORDERED: LACT-239 PO (16:30)
[2025-05-03] MEDS ORDERED: BENZ1TAB7 PO (16:30)
[2025-05-03] MEDS ORDERED: TRAZ-257 PO (16:30)
[2025-05-03] MEDS ORDERED: ICOS1CAP PO (16:30)
[2025-05-03] MEDS ORDERED: DICL100G34 TP (16:30)
[2025-05-03] MEDS ORDERED: LEVO5TAB13 PO (16:30)
[2025-05-03] MEDS ORDERED: ASCO500T10 PO (16:30)
[2025-05-03] MEDS ORDERED: CHOL100062 PO (16:30)
[2025-05-03] MEDS ORDERED: QUET200T PO (16:30)
[2025-05-03] MEDS ORDERED: FERR325T24 PO (16:30)
[2025-05-03] MEDS ORDERED: POTA8CAP20 PO (16:30)
[2025-05-03] MEDS: IV NS 0.9% 1,000 ML BAG IV ONE (19:10)
[2025-05-03] MEDS: CEFEPIME 1 GM in IV D5W 50 ML IV ONE (19:20)
[2025-05-03] MEDS: VANCOMYCIN 1 GM in IV D5W 250 ML IV ONE (19:28)
[2025-05-03] MEDS ORDERED: Medication Not On Formulary EA (Semaglutide (Ozempic) 0.5 MG) SQ SCH (20:30)
[2025-05-03] MEDS ORDERED: ACETAMINOPHEN 325 MG TABLET PO PRN (20:30)
[2025-05-03] MEDS ORDERED: Z GUARD REMEDY 4 OZ OINT TP PRN (20:30)
[2025-05-03] MEDS ORDERED: ONDANSETRON HCL/PF 4 MG/2 ML VIAL IVP PRN (20:30)
[2025-05-03] MEDS ORDERED: MAG HYDROX/AL HYDROX/SIMETH 30 ML UDC PO PRN (20:30)
[2025-05-03 21:00] VITALS: BP 111/90; TEMP 98.2; O2SAT 98
[2025-05-03] MEDS: ENOXAPARIN SODIUM 40 MG/0.4 ML DISP.SYRIN SQ SCH (21:00)
[2025-05-03] MEDS ORDERED: ENOXAPARIN SODIUM 30 MG/0.3 ML DISP.SYRIN SQ SCH (21:00)
[2025-05-03] MEDS: TRAZODONE 50 MG TABLET PO SCH (21:34)
[2025-05-03] MEDS: QUETIAPINE FUMARATE 100 MG TABLET PO SCH (21:35)
[2025-05-03] MEDS: TRAMADOL HCL 50 MG TABLET PO SCH (21:35)
[2025-05-03] MEDS: MIRTAZAPINE 15 MG TABLET PO SCH (21:35)
[2025-05-03] MEDS: VANCOMYCIN 1 GM /D5W 250 ML PB IV ONE (22:12)
[2025-05-03] MEDS: VANCOMYCIN 500 MG in IV D5W 100 ML IV ONE (22:17)
[2025-05-03] MEDS: IV NS 0.9% 1,000 ML IV PRN (22:18)
[2025-05-04] MEDS: CEFEPIME 2 GM in IV D5W 100 ML IV SCH (05:24)
[2025-05-04 06:30] LABS: BASOPHILS % (AUTO) 0.3 % (0.0-2.0); EOSINOPHILS # (AUTO) 0.2 K/uL (0.0-0.7); HEMATOCRIT 28 % (33-45); HEMOGLOBIN 9.4 g/dL (11.5-14.8); LYMPHOCYTES % (AUTO) 37.8 % (20.0-44.0); MEAN CORPUSCULAR HEMOGLOBIN 30 PG (26.0-33.0); MEAN CORPUSCULAR HGB CONC 33 g/dl (31.0-36.0); MEAN CORPUSCULAR VOLUME 89 fL (82-100); MONOCYTES # (AUTO) 0.4 K/uL (0.1-1.30); MONOCYTES % (AUTO) 7.8 % (2.0-12.0); NEUTROPHILS # (AUTO) 2.7 K/uL (1.8-8.9); NEUTROPHILS % (AUTO) 50.1 % (43.0-81.0); PLATELET COUNT (AUTO) 163 K/uL (150-450); RED BLOOD CELL COUNT(AUTO) 3.16 MIL/uL (4.0-5.2); RED CELL DISTRIBUTION WIDTH 14.8 % (11.5-15.0); WHITE BLOOD COUNT (AUTO) 5.3 K/uL (4.3-11.0)
[2025-05-04 07:35] LABS: ERYTHROCYTE SEDIMENTATION RATE 22 MM/HR (0-30)
[2025-05-04 08:00] VITALS: BP 137/74; TEMP 98.2; O2SAT 94
[2025-05-04 08:03] LABS: ALBUMIN 2.6 g/dL (3.4-5.0); BILIRUBIN,DIRECT 0.1 mg/dL (0.0-0.2); BILIRUBIN,TOTAL 0.3 mg/dL (0.2-1.0); CALCIUM, SERUM 8.4 mg/dL (8.5-10.1); CREATININE 1.1 mg/dL (0.6-1.3); MAGNESIUM 1.8 mg/dL (1.8-2.4); PHOSPHORUS 3.8 mg/dL (2.5-4.9); POTASSIUM 3.5 mmol/L (3.5-5.1); TOTAL PROTEIN, SERUM 6.5 g/dL (6.4-8.2)
[2025-05-04 08:09] LABS: THYROID STIMULATING HORMONE 1.31 uIU/mL (0.358-3.74)
[2025-05-04] MEDS: DIVALPROEX SODIUM 250 MG TABLET.DR PO SCH (08:22)
[2025-05-04] MEDS: EMPAGLIFLOZIN 10 MG TABLET PO SCH (08:22)
[2025-05-04] MEDS: SERTRALINE HCL 25 MG TABLET PO SCH (08:22)
[2025-05-04] MEDS: MULTIVITAMINS,THERAGRAN 1 UDTAB TABLET PO SCH (08:22)
[2025-05-04] MEDS: ASCORBIC ACID 500 MG TABLET PO SCH (08:22)
[2025-05-04] MEDS: CHOLECALCIFEROL 1,000 UNIT TABLET (VIT D3) PO SCH (08:22)
[2025-05-04] MEDS: ASPIRIN 81 MG TAB.CHEW PO SCH (08:22)
[2025-05-04] MEDS: BENZTROPINE MESYLATE (1 MG) 1 MG TABLET PO SCH (08:22)
[2025-05-04] MEDS: FUROSEMIDE 20 MG TABLET PO SCH (08:22)
[2025-05-04] MEDS: CARBIDOPA/LEVODOPA 25/100 MG 1 UDTAB PO SCH (08:22)
[2025-05-04] MEDS: DIVALPROEX SODIUM 500 MG TABLET.DR PO SCH (08:22)
[2025-05-04] MEDS: FERROUS SULFATE (325 MG) 325 MG/TAB TABLET PO SCH (08:23)
[2025-05-04] MEDS: PANTOPRAZOLE 40 MG TABLET.DR PO SCH (08:23)
[2025-05-04] MEDS: PREGABALIN 25 MG CAPSULE PO SCH (08:23)
[2025-05-04] MEDS: METFORMIN 500 MG TABLET PO SCH (08:23)
[2025-05-04] MEDS: DICLOFENAC TOPICAL 100 GM TUBE TP SCH (08:23)
[2025-05-04] MEDS: POTASSIUM CHLORIDE 10 MEQ TABLET.SA PO SCH (08:23)
[2025-05-04] MEDS: ENSURE CLEAR 237 ML LIQUID (MIX BERRY) PO SCH (08:27)
[2025-05-04] MEDS: LOSARTAN POTASSIUM 50 MG TABLET PO SCH (08:36)
[2025-05-04] MEDS: INSULIN GLARGINE, 100 UNIT/ML CARTRIDGE SQ SCH (08:45)
[2025-05-04] MEDS ORDERED: Medication Not On Formulary EA (Chlorthalidone 12.5 MG) PO SCH (09:00)
[2025-05-04] MEDS ORDERED: Medication Not On Formulary EA (Icosapent Ethyl (Vascepa) 1 GM) PO SCH (09:00)
[2025-05-04] MEDS: THERAHONEY GEL 1.5 OZ TUBE TP SCH (09:14)
[2025-05-04] MEDS ORDERED: DEXTROSE 50%-WATER 50 ML DISP.SYRIN IV PRN (11:30)
[2025-05-04] MEDS: BLOOD SUGAR DIAGNOSTIC 1 EACH STRIP IN SCH (11:35)
[2025-05-04 16:00] VITALS: BP 123/57; TEMP 98.2; O2SAT 99
[2025-05-04] MEDS: ATORVASTATIN 40 MG TABLET PO SCH (17:19)
[2025-05-04] MEDS ORDERED: Medication Not On Formulary EA (Levocetirizine Dihydrochloride 5 MG) PO SCH (18:00)
[2025-05-04 19:17] LABS: APPEARANCE,URINE CLEAR (CLEAR); BILIRUBIN,URINE NEGATIVE (NEGATIVE); BLOOD, URINE NEGATIVE Ery/uL (NEGATIVE); COLOR,URINE YELLOW (YELLOW); KETONES,URINE NEGATIVE (NEGATIVE); LEUKOCYTE ESTERASE ,URINE NEGATIVE (NEGATIVE); NITRITE, URINE NEGATIVE (NEGATIVE); PH,URINE 6.5 (5.0-8.0); PROTEIN,URINE NEGATIVE (NEGATIVE); UGLUCOSE 3+ mg/dL (NEGATIVE); UROBILINOGEN,URINE 0.2 EU/dL (0.2)
[2025-05-04 19:31] LABS: CREATININE, URINE 19.2 MG/DL (30.0-125.0); URINE TOTAL PROTEIN 13.2 mg/dL (0-11.9)
[2025-05-04 20:29] LABS: ADD URINE CULTURE NO; BACTERIA,URINE Few /HPF (None Seen); RBC,URINE 0-2 /HPF (0-2); SQUAMOUS EPITHELIAL CELL,UR Few /HPF (None Seen)
[2025-05-04 20:31] LABS: EOSINOPHIL,URINE None Seen
[2025-05-04 20:57] VITALS: BP 122/77; TEMP 98.6; O2SAT 97
[2025-05-04] MEDS ORDERED: VANCOMYCIN 1 GM in IV D5W 250 ML IV SCH (21:00)
[2025-05-04 21:13] VITALS: BP 122/77; TEMP 98.6; O2SAT 97
[2025-05-04] MEDS: VANCOMYCIN HCL 1.25 GM in IV D5W 250 ML IV SCH (22:12)
[2025-05-04] MEDS: POLYETHYLENE GLYCOL 3350 17 GM POWD.PACK PO SCH (22:13)
[2025-05-04] MEDS: INSULIN REGULAR, HUMAN 100 UNIT/ML 3 ML VIAL SQ PRN (22:52)
[2025-05-05 07:00] VITALS: BP 149/60; TEMP 97.9; O2SAT 99
[2025-05-05 07:21] LABS: BASOPHILS % (AUTO) 0.6 % (0.0-2.0); EOSINOPHILS # (AUTO) 0.2 K/uL (0.0-0.7); EOSINOPHILS % (AUTO) 4.2 % (0.0-6.0); HEMATOCRIT 29 % (33-45); HEMOGLOBIN 9.7 g/dL (11.5-14.8); LYMPHOCYTES # (AUTO) 2.3 K/uL (0.8-4.8); LYMPHOCYTES % (AUTO) 41.2 % (20.0-44.0); MEAN CORPUSCULAR HEMOGLOBIN 30 PG (26.0-33.0); MEAN CORPUSCULAR HGB CONC 33 g/dl (31.0-36.0); MEAN CORPUSCULAR VOLUME 91 fL (82-100); MONOCYTES # (AUTO) 0.4 K/uL (0.1-1.30); MONOCYTES % (AUTO) 6.6 % (2.0-12.0); NEUTROPHILS # (AUTO) 2.7 K/uL (1.8-8.9); NEUTROPHILS % (AUTO) 47.4 % (43.0-81.0); PLATELET COUNT (AUTO) 162 K/uL (150-450); RED BLOOD CELL COUNT(AUTO) 3.19 MIL/uL (4.0-5.2); RED CELL DISTRIBUTION WIDTH 14.5 % (11.5-15.0); WHITE BLOOD COUNT (AUTO) 5.7 K/uL (4.3-11.0)
[2025-05-05 08:07] LABS: ALBUMIN 2.6 g/dL (3.4-5.0); BILIRUBIN,TOTAL 0.3 mg/dL (0.2-1.0); CALCIUM, SERUM 8.4 mg/dL (8.5-10.1); CREATININE 0.9 mg/dL (0.6-1.3); MAGNESIUM 1.7 mg/dL (1.8-2.4); PHOSPHORUS 3.3 mg/dL (2.5-4.9); POTASSIUM 3.2 mmol/L (3.5-5.1); TOTAL PROTEIN, SERUM 6.7 g/dL (6.4-8.2)
[2025-05-05] MEDS: MAGNESIUM OXIDE 400 MG TABLET PO ONE (09:13)
[2025-05-05] MEDS: POTASSIUM CHLORIDE 20 MEQ TAB.PRT.SR PO SCH (09:39)
[2025-05-05 16:00] VITALS: BP 115/53; TEMP 97.9; O2SAT 95
[2025-05-05 20:00] VITALS: BP 120/95; TEMP 98.4; O2SAT 97
[2025-05-06 03:02] VITALS: BP 120/95; TEMP 98.4; O2SAT 97
[2025-05-06 07:30] VITALS: BP 115/62; TEMP 98.1; O2SAT 96
[2025-05-06 08:10] LABS: PTH, INTACT 42 pg/mL (15-65)
[2025-05-06 08:16] LABS: BASOPHILS % (AUTO) 0.5 % (0.0-2.0); EOSINOPHILS # (AUTO) 0.2 K/uL (0.0-0.7); EOSINOPHILS % (AUTO) 4.1 % (0.0-6.0); HEMATOCRIT 32 % (33-45); LYMPHOCYTES % (AUTO) 41.8 % (20.0-44.0); MEAN CORPUSCULAR HEMOGLOBIN 30 PG (26.0-33.0); MEAN CORPUSCULAR HGB CONC 32 g/dl (31.0-36.0); MEAN CORPUSCULAR VOLUME 95 fL (82-100); MONOCYTES # (AUTO) 0.3 K/uL (0.1-1.30); MONOCYTES % (AUTO) 6.9 % (2.0-12.0); NEUTROPHILS # (AUTO) 2.2 K/uL (1.8-8.9); NEUTROPHILS % (AUTO) 46.7 % (43.0-81.0); PLATELET COUNT (AUTO) 114 K/uL (150-450); RED BLOOD CELL COUNT(AUTO) 3.32 MIL/uL (4.0-5.2); WHITE BLOOD COUNT (AUTO) 4.8 K/uL (4.3-11.0)
[2025-05-06 09:38] LABS: CALCIUM, SERUM 8.6 mg/dL (8.5-10.1); CREATININE 1.1 mg/dL (0.6-1.3)
[2025-05-06 16:00] VITALS: BP 123/60; TEMP 98.4; O2SAT 96
[2025-05-06 20:00] VITALS: BP 131/60; TEMP 98.2; O2SAT 95
[2025-05-07 07:00] VITALS: BP 113/57; TEMP 98.2; O2SAT 94
[2025-05-07 07:24] LABS: BASOPHILS % (AUTO) 0.3 % (0.0-2.0); EOSINOPHILS # (AUTO) 0.1 K/uL (0.0-0.7); EOSINOPHILS % (AUTO) 0.9 % (0.0-6.0); HEMATOCRIT 31 % (33-45); HEMOGLOBIN 10.4 g/dL (11.5-14.8); LYMPHOCYTES # (AUTO) 1.1 K/uL (0.8-4.8); LYMPHOCYTES % (AUTO) 10.5 % (20.0-44.0); MEAN CORPUSCULAR HEMOGLOBIN 30 PG (26.0-33.0); MEAN CORPUSCULAR HGB CONC 34 g/dl (31.0-36.0); MEAN CORPUSCULAR VOLUME 89 fL (82-100); MONOCYTES # (AUTO) 0.8 K/uL (0.1-1.30); MONOCYTES % (AUTO) 7.7 % (2.0-12.0); NEUTROPHILS # (AUTO) 8.2 K/uL (1.8-8.9); NEUTROPHILS % (AUTO) 80.6 % (43.0-81.0); PLATELET COUNT (AUTO) 150 K/uL (150-450); RED BLOOD CELL COUNT(AUTO) 3.42 MIL/uL (4.0-5.2); RED CELL DISTRIBUTION WIDTH 14.7 % (11.5-15.0); WHITE BLOOD COUNT (AUTO) 10.1 K/uL (4.3-11.0)
[2025-05-07 07:41] LABS: CALCIUM, SERUM 8.4 mg/dL (8.5-10.1); POTASSIUM 3.8 mmol/L (3.5-5.1)
[2025-05-07 13:07] LABS: *SPE A/G RATIO 0.9 (0.7-1.7); *SPE ALBUMIN 2.9 g/dL (2.9-4.4); *SPE ALPHA-1-GLOBULIN 0.2 g/dL (0.0-0.4); *SPE ALPHA-2-GLOBULIN 0.6 g/dL (0.4-1.0); *SPE BETA GLOBULIN 0.9 g/dL (0.7-1.3); *SPE GLOBULIN, TOTAL 3.1 g/dL (2.2-3.9); *SPE M-SPIKE Not Observed g/dL (Not Observed); *SPEGAMMA GLOBULIN 1.4 g/dL (0.4-1.8)
[2025-05-07 16:00] VITALS: BP 112/55; TEMP 98.4; O2SAT 97
[2025-05-07 20:00] VITALS: BP 119/71; TEMP 98.8; O2SAT 96
[2025-05-07] MEDS: VANCOMYCIN 1 GM in IV D5W 250 ML IV SCH (21:17)
[2025-05-07] MEDS: MAGNESIUM HYDROXIDE 30 ML UDC PO PRN (21:19)
[2025-05-08 08:00] VITALS: BP 128/64; TEMP 98.2; TEMP 98.8; O2SAT 96
[2025-05-08 08:04] LABS: BASOPHILS % (AUTO) 0.2 % (0.0-2.0); EOSINOPHILS # (AUTO) 0.1 K/uL (0.0-0.7); EOSINOPHILS % (AUTO) 1.4 % (0.0-6.0); HEMATOCRIT 28 % (33-45); HEMOGLOBIN 9.7 g/dL (11.5-14.8); LYMPHOCYTES # (AUTO) 1.5 K/uL (0.8-4.8); LYMPHOCYTES % (AUTO) 15.7 % (20.0-44.0); MEAN CORPUSCULAR HEMOGLOBIN 31 PG (26.0-33.0); MEAN CORPUSCULAR HGB CONC 35 g/dl (31.0-36.0); MEAN CORPUSCULAR VOLUME 88 fL (82-100); MONOCYTES # (AUTO) 0.8 K/uL (0.1-1.30); NEUTROPHILS # (AUTO) 7.3 K/uL (1.8-8.9); NEUTROPHILS % (AUTO) 74.7 % (43.0-81.0); PLATELET COUNT (AUTO) 139 K/uL (150-450); RED BLOOD CELL COUNT(AUTO) 3.15 MIL/uL (4.0-5.2); RED CELL DISTRIBUTION WIDTH 14.5 % (11.5-15.0); WHITE BLOOD COUNT (AUTO) 9.8 K/uL (4.3-11.0)
[2025-05-08 08:39] LABS: CALCIUM, SERUM 8.6 mg/dL (8.5-10.1); POTASSIUM 3.8 mmol/L (3.5-5.1)
[2025-05-08 16:00] VITALS: BP 107/60; TEMP 98.4; O2SAT 96
[2025-05-08 22:01] VITALS: BP 93/66; TEMP 98.4; O2SAT 97
[2025-05-09 07:00] VITALS: BP 122/51; TEMP 97.7; O2SAT 95
[2025-05-09 07:17] LABS: BASOPHILS % (AUTO) 0.3 % (0.0-2.0); EOSINOPHILS # (AUTO) 0.3 K/uL (0.0-0.7); EOSINOPHILS % (AUTO) 4.7 % (0.0-6.0); HEMATOCRIT 30 % (33-45); HEMOGLOBIN 10.1 g/dL (11.5-14.8); LYMPHOCYTES # (AUTO) 2.1 K/uL (0.8-4.8); LYMPHOCYTES % (AUTO) 28.9 % (20.0-44.0); MEAN CORPUSCULAR HEMOGLOBIN 31 PG (26.0-33.0); MEAN CORPUSCULAR HGB CONC 34 g/dl (31.0-36.0); MEAN CORPUSCULAR VOLUME 90 fL (82-100); MONOCYTES # (AUTO) 0.6 K/uL (0.1-1.30); MONOCYTES % (AUTO) 7.9 % (2.0-12.0); NEUTROPHILS # (AUTO) 4.2 K/uL (1.8-8.9); NEUTROPHILS % (AUTO) 58.2 % (43.0-81.0); PLATELET COUNT (AUTO) 144 K/uL (150-450); RED BLOOD CELL COUNT(AUTO) 3.29 MIL/uL (4.0-5.2); RED CELL DISTRIBUTION WIDTH 15.1 % (11.5-15.0); WHITE BLOOD COUNT (AUTO) 7.3 K/uL (4.3-11.0)
[2025-05-09 07:41] LABS: CALCIUM, SERUM 8.9 mg/dL (8.5-10.1); POTASSIUM 3.6 mmol/L (3.5-5.1)
[2025-05-09 08:34] VITALS: BP 122/51
[2025-05-09] MEDS ORDERED: INSU100I30 SQ (11:25)
[2025-05-09] MEDS ORDERED: ASCO500T21 PO (11:25)
[2025-05-09] MEDS ORDERED: COLL30OI TP (11:25)
[2025-05-09] MEDS ORDERED: MULT-24 PO (11:25)
[2025-05-09] MEDS ORDERED: ATOR40TA PO (11:25)
[2025-05-09] MEDS ORDERED: PREG25CA PO (11:25)
[2025-05-09] MEDS ORDERED: Carbidopa/Levodopa 25/100 Mg PO (11:25)
[2025-05-09] MEDS ORDERED: PANT40TA49 PO (11:25)
[2025-05-09] MEDS ORDERED: CHOL100040 PO (11:25)
[2025-05-09] MEDS ORDERED: ACET325T53 PO (11:25)
[2025-05-09] MEDS ORDERED: TRAM50TA2 PO (11:25)
[2025-05-09] MEDS ORDERED: BENZ1TAB7 PO (11:25)
[2025-05-09] MEDS ORDERED: METF-440 PO (11:25)
[2025-05-09] MEDS ORDERED: FURO20TA4 PO (11:25)
[2025-05-09] MEDS ORDERED: TRAZ-252 PO (11:25)
[2025-05-09] MEDS ORDERED: POLY17PO29 PO (11:25)
[2025-05-09] MEDS ORDERED: EMPA10TA PO (11:25)
[2025-05-09] MEDS ORDERED: DICLOFENAC TP (11:25)
[2025-05-09] MEDS ORDERED: Lactose-Free Food PO (11:25)
[2025-05-09] MEDS ORDERED: ENOX40DI SQ (11:25)
[2025-05-09] MEDS ORDERED: LOSA50TA39 PO (11:25)
[2025-05-09] MEDS ORDERED: ASPI-1169 PO (11:25)
[2025-05-09] MEDS ORDERED: Quetiapine Fumarate PO (11:25)
[2025-05-09] MEDS ORDERED: DIVA250T4 PO (11:25)
[2025-05-09] MEDS ORDERED: FERR325T28 PO (11:25)
[2025-05-09] MEDS ORDERED: POTA10TA10 PO (11:25)
[2025-05-09] MEDS ORDERED: DIVA500T2 PO (11:25)
[2025-05-09] MEDS ORDERED: SERT25TA5 PO (11:25)
[2025-05-09 12:44] LABS: NEUTROPHILS % (MANUAL) 62 (42-76)
[2025-05-09 12:45] LABS: EOSINOPHILS % (MANUAL) 4 % (0-4); LYMPHOCYTES % (MANUAL) 26 % (16-48); MONOCYTES % (MANUAL) 8 % (0-11.0); PLATELET ESTIMATE ADEQUATE
== END 2025-05-09 15:30 | DRG 570 ==
LOC: ER 15:18 → MED 20:27
PROVIDERS: ADMIT Nurse Practitioner Family; ATTEND Nurse Practitioner Acute Care
PROC: 0JB90ZZ Excision of Buttock Subcutaneous Tissue and Fascia, Open Approach (ICD-10-PCS; principal; 2025-05-05)
DX: L89.323 Pressure ulcer of left buttock, stage 3 (principal); N17.0 Acute kidney failure with tubular necrosis; L03.312 Cellulitis of back [any part except buttock and flank]; D68.59 Other primary thrombophilia; E44.0 Moderate protein-calorie malnutrition; K21.9 Gastro-esophageal reflux disease without esophagitis; M89.8X9 Other specified disorders of bone, unspecified site; D63.8 Anemia in other chronic diseases classified elsewhere; E66.9 Obesity, unspecified; E78.5 Hyperlipidemia, unspecified; E83.42 Hypomagnesemia; E87.6 Hypokalemia; E88.09 Other disorders of plasma-protein metabolism, not elsewhere classified; Z68.31 Body mass index [BMI] 31.0-31.9, adult; Z90.49 Acquired absence of other specified parts of digestive tract; Z79.84 Long term (current) use of oral hypoglycemic drugs; E11.65 Type 2 diabetes mellitus with hyperglycemia; R53.1 Weakness; F39 Unspecified mood [affective] disorder; G20.A1 Parkinson's disease without dyskinesia, without mention of fluctuations; E83.9 Disorder of mineral metabolism, unspecified; I12.9 Hypertensive chronic kidney disease with stage 1 through stage 4 chronic kidney disease, or unspecified chronic kidney disease; N18.9 Chronic kidney disease, unspecified; Z79.4 Long term (current) use of insulin
CPT/HCPCS: 36415; 72192-TC; 80048-TC; 80053-TC; 80076-TC; 80202-TC; 81001; 82550-TC; 82570-TC; 82962-TC; 83735-TC; 83970; 84100-TC; 84155; 84165; 84300-TC; 84443-TC; 85025-TC; 85652-TC; 87040-TC; 87081-TC; 87086-TC; 97110-TC; 97116-TC; 97530-TC; A4223; G0378; J0692; J1650; J1815; J3370; J7030; J7040; J7050; J7060; Q9967

== ENCOUNTER 2025-09-21 19:08 | Inpatient (IN) | payer MEDICARE, OTHER ==
[~2025-09-21] VITALS: Ht 165.1 cm; Wt 67.1 kg
[~2025-09-21 19:08] MED LIST changes: +ACET325T53 PO; +ASCO500T21 PO; +BENZ1TAB7 PO; -CARB1TAB21 PO; -CHLO25TA2 PO; +CHOL100040 PO; -CLOT15CR5 TP; +COLL30OI TP; +Carbidopa/Levodopa 25/100 Mg PO; +DICLOFENAC TP; -DIVA-78 PO; +DIVA250T4 PO; -DIVA250T47 PO; +DIVA500T2 PO; -DOCU-141 PO; +ENOX40DI SQ; -EPIN0.3A4 IM; +FERR325T28 PO; +FURO20TA4 PO; -GLIM4TAB37 PO; -HYDR-3972 PO; -HYDR-500 PO; +ICOS1CAP PO; +INSU100I30 SQ; -INSU100V7 SQ; +LEVO5TAB13 PO; -LORA-259 PO; -LOSA100T31 PO; +LOSA50TA39 PO; +Lactose-Free Food PO; -MIRT-90 PO; +MULT-24 PO; -NYST15CR TP; -ONDA4TAB11 PO; +PANT40TA49 PO; +POLY17PO29 PO; +POTA10TA10 PO; +PREG25CA PO; -PREG50CA PO; +Quetiapine Fumarate PO; +SEMA0.25 SQ; -SENN-261 PO; +SERT25TA5 PO; -TACR100O2 TP; +TRAM50TA2 PO; +TRAZ-252 PO; -TRIA80CR12 TP
[2025-09-21] MEDS: ONDANSETRON HCL/PF 4 MG/2 ML VIAL IVP ONE (19:30)
[2025-09-21 20:20] LABS: APPEARANCE,URINE CLEAR (CLEAR); BLOOD, URINE Trace-intact Ery/uL (NEGATIVE); LEUKOCYTE ESTERASE ,URINE Small (NEGATIVE); NITRITE, URINE NEGATIVE (NEGATIVE); UGLUCOSE 100 MG/DL mg/dL (NEGATIVE)
[2025-09-21 20:21] LABS: PLATELET COUNT (AUTO) 144 K/uL (150-450); RED BLOOD CELL COUNT(AUTO) 2.98 MIL/uL (4.0-5.2); RED CELL DISTRIBUTION WIDTH 15.9 % (11.5-15.0); WHITE BLOOD COUNT (AUTO) 5.5 K/uL (4.3-11.0)
[2025-09-21 20:22] LABS: ADD URINE CULTURE YES
[2025-09-21 20:23] LABS: SQUAMOUS EPITHELIAL CELL,UR Few /HPF (None Seen)
[2025-09-21] MEDS: IV NS 0.9% 1,000 ML BAG IV ONE (20:28)
[2025-09-21] MEDS ORDERED: ONDANSETRON HCL/PF 4 MG/2 ML VIAL ONE (20:32)
[2025-09-21 20:36] LABS: LACTIC ACID 3.8 mmol/L (0.4-2.0)
[2025-09-21 20:41] LABS: ASPARTATE AMINOTRANSFERASE 14 U/L (15-37); CALCIUM, SERUM 9.0 mg/dL (8.5-10.1); CREATININE 1.4 mg/dL (0.6-1.3); SODIUM SERUM 137 mmol/L (136-145); TOTAL PROTEIN, SERUM 7.5 g/dL (6.4-8.2); UREA NITROGEN, BLOOD 43 mg/dL (7-18)
[2025-09-21] MEDS ORDERED: PIPERACI/TAZO 3.375GM/D5W 50ML PB IV ONE (21:00)
[2025-09-21] MEDS: PIPERACILLIN /TAZOBACTAM 3.375 G in IV D5W 50 ML IV ONE (21:08)
[2025-09-21] MEDS ORDERED: MAG HYDROX/AL HYDROX/SIMETH 30 ML UDC PO PRN (22:00)
[2025-09-21] MEDS ORDERED: ACETAMINOPHEN 325 MG TABLET PO PRN (22:00)
[2025-09-21] MEDS ORDERED: IV NS 0.9% 1,000 ML IV SCH (22:00)
[2025-09-21] MEDS ORDERED: HYDROCODONE/APAP 5/325MG TABLET PO PRN (22:00)
[2025-09-21] MEDS ORDERED: HYDROCODONE/APAP 10/325MG TABLET PO PRN (22:00)
[2025-09-21] MEDS: BLOOD SUGAR DIAGNOSTIC 1 EACH STRIP IN SCH (22:00)
[2025-09-21] MEDS ORDERED: ONDANSETRON HCL/PF 4 MG/2 ML VIAL IVP PRN (22:00)
[2025-09-21] MEDS ORDERED: MAGNESIUM HYDROXIDE 30 ML UDC PO PRN (22:00)
[2025-09-21] MEDS ORDERED: DOSING PER PHARMACY-ZOSYN IV 1 EA EA XX PRN (22:00)
[2025-09-21] MEDS: IV NS 0.9% 1,000 ML IV SCH (23:41)
[2025-09-21] MEDS: POTASSIUM CHLORIDE 20 MEQ TAB.PRT.SR PO ONE (23:50)
[2025-09-21] MEDS: INSULIN REGULAR, HUMAN 100 UNIT/ML 3 ML VIAL SQ PRN (23:51)
[2025-09-21] MEDS: ENOXAPARIN SODIUM 40 MG/0.4 ML DISP.SYRIN SQ SCH (23:51)
[2025-09-22] VITALS: BP 131/56; TEMP 97.9; O2SAT 100
[2025-09-22 04:00] VITALS: BP 129/58; TEMP 97; O2SAT 98
[2025-09-22] MEDS: PANTOPRAZOLE 40 MG TABLET.DR PO SCH (06:45)
[2025-09-22] MEDS: DEXTROSE 50%-WATER 50 ML DISP.SYRIN IV PRN (06:46)
[2025-09-22 07:33] LABS: PLATELET COUNT (AUTO) 124 K/uL (150-450); RED BLOOD CELL COUNT(AUTO) 2.98 MIL/uL (4.0-5.2); RED CELL DISTRIBUTION WIDTH 15.8 % (11.5-15.0); WHITE BLOOD COUNT (AUTO) 4.5 K/uL (4.3-11.0)
[2025-09-22 08:00] VITALS: BP 140/58; TEMP 97.5; O2SAT 100
[2025-09-22 08:13] LABS: CALCIUM, SERUM 8.9 mg/dL (8.5-10.1); CREATININE 1.4 mg/dL (0.6-1.3); PHOSPHORUS 3.2 mg/dL (2.5-4.9); SODIUM SERUM 144.0 mmol/L (136-145); UREA NITROGEN, BLOOD 36.0 mg/dL (7-18)
[2025-09-22] MEDS ORDERED: LOSA100T3 PO (08:18)
[2025-09-22] MEDS ORDERED: METF-440 PO (08:18)
[2025-09-22] MEDS ORDERED: PANT40TA49 PO (08:18)
[2025-09-22] MEDS ORDERED: MIRT-91 PO (08:18)
[2025-09-22] MEDS ORDERED: MULT-594 PO (08:18)
[2025-09-22] MEDS ORDERED: DIVA-78 PO (08:18)
[2025-09-22] MEDS ORDERED: CHLO25TA2 PO (08:18)
[2025-09-22] MEDS ORDERED: SEMA0.25 SQ (08:18)
[2025-09-22] MEDS ORDERED: TRIA60LO8 TP (08:18)
[2025-09-22] MEDS: DOCUSATE SODIUM 100 MG CAPSULE PO SCH (08:58)
[2025-09-22] MEDS: GLUCERNA SHAKE 237 ML CAN PO SCH (09:36)
[2025-09-22] MEDS: PIPERACILLIN /TAZOBACTAM 3.375 G in IV D5W 100 ML IV SCH (10:25)
[2025-09-22 16:00] VITALS: BP 142/60; TEMP 97.9; O2SAT 100
[2025-09-22 20:00] VITALS: BP 135/62; TEMP 100; O2SAT 100
[2025-09-23 04:00] VITALS: BP 128/97; TEMP 97.5; O2SAT 97
[2025-09-23 05:49] LABS: PLATELET COUNT (AUTO) 150 K/uL (150-450); RED BLOOD CELL COUNT(AUTO) 3.37 MIL/uL (4.0-5.2); RED CELL DISTRIBUTION WIDTH 15.7 % (11.5-15.0); WHITE BLOOD COUNT (AUTO) 6.6 K/uL (4.3-11.0)
[2025-09-23 06:04] LABS: ASPARTATE AMINOTRANSFERASE 14.0 U/L (15-37); CALCIUM, SERUM 9.1 mg/dL (8.5-10.1); CREATININE 1.2 mg/dL (0.6-1.3); PHOSPHORUS 3.0 mg/dL (2.5-4.9); SODIUM SERUM 143.0 mmol/L (136-145); TOTAL PROTEIN, SERUM 6.9 g/dL (6.4-8.2); UREA NITROGEN, BLOOD 24.0 mg/dL (7-18)
[2025-09-23 07:30] VITALS: BP 152/75; TEMP 99.1; O2SAT 98
[2025-09-23 08:00] VITALS: BP 152/75; TEMP 99.1; O2SAT 98
[2025-09-23] MEDS ORDERED: ACETAMINOPHEN 325 MG TABLET PO PRN (13:00)
[2025-09-23] MEDS ORDERED: Medication Not On Formulary EA (Semaglutide (Ozempic) 0.5 MG) SQ SCH (13:00)
[2025-09-23 16:00] VITALS: BP 146/92; TEMP 98.1; O2SAT 98
[2025-09-23] MEDS: DIVALPROEX SODIUM 500 MG TABLET.DR PO SCH (17:57)
[2025-09-23] MEDS: MEGESTROL ACETATE 40 MG TABLET PO SCH (17:58)
[2025-09-23] MEDS: CARBIDOPA/LEVODOPA 25/100 MG 1 UDTAB PO SCH (17:58)
[2025-09-23] MEDS: METFORMIN 500 MG TABLET PO SCH (17:58)
[2025-09-23] MEDS: DICLOFENAC TOPICAL 100 GM TUBE TP SCH (17:59)
[2025-09-23] MEDS: GLUCERNA SHAKE 237 ML CAN PO SCH (18:11)
[2025-09-23] MEDS: ATORVASTATIN 40 MG TABLET PO SCH (18:35)
[2025-09-23 20:00] VITALS: BP 146/71; TEMP 99.2; O2SAT 98
[2025-09-23] MEDS: MIRTAZAPINE 15 MG TABLET PO SCH (22:42)
[2025-09-24 04:00] VITALS: BP 135/62; TEMP 98.1; O2SAT 97
[2025-09-24 06:06] LABS: PLATELET COUNT (AUTO) 143 K/uL (150-450); RED BLOOD CELL COUNT(AUTO) 3.30 MIL/uL (4.0-5.2); RED CELL DISTRIBUTION WIDTH 15.4 % (11.5-15.0); WHITE BLOOD COUNT (AUTO) 5.6 K/uL (4.3-11.0)
[2025-09-24 06:14] LABS: CALCIUM, SERUM 8.8 mg/dL (8.5-10.1); CREATININE 1.2 mg/dL (0.6-1.3); PHOSPHORUS 2.7 mg/dL (2.5-4.9); SODIUM SERUM 142.0 mmol/L (136-145); UREA NITROGEN, BLOOD 21.0 mg/dL (7-18)
[2025-09-24] MEDS ORDERED: PANTOPRAZOLE 40 MG TABLET.DR PO SCH (07:30)
[2025-09-24 08:00] VITALS: BP 157/62; TEMP 98.6; O2SAT 97
[2025-09-24] MEDS: CHOLECALCIFEROL 1,000 UNIT TABLET (VIT D3) PO SCH (08:57)
[2025-09-24] MEDS: LOSARTAN POTASSIUM 50 MG TABLET PO SCH (08:59)
[2025-09-24] MEDS: MULTIVITAMINS,THERAGRAN 1 UDTAB TABLET PO SCH (08:59)
[2025-09-24] MEDS: ASPIRIN 81 MG TAB.CHEW PO SCH (08:59)
[2025-09-24] MEDS: ASCORBIC ACID 500 MG TABLET PO SCH (08:59)
[2025-09-24] MEDS ORDERED: Medication Not On Formulary EA (Chlorthalidone 25 MG) PO SCH (09:00)
[2025-09-24] MEDS ORDERED: BLOOD SUGAR DIAGNOSTIC 1 EACH STRIP IN SCH (09:00)
[2025-09-24] MEDS: BENZTROPINE MESYLATE (1 MG) 1 MG TABLET PO SCH (09:05)
[2025-09-24] MEDS: ENSURE ENLIVE 237 ML LIQUID (VANILLA) PO SCH (09:06)
[2025-09-24 16:00] VITALS: BP 148/72; TEMP 99.5; O2SAT 97
[2025-09-24] MEDS: TRIAMCINOLONE 0.1% LOTION 60 ML BOTTLE TP SCH (17:15)
[2025-09-24 20:00] VITALS: BP 147/65; TEMP 98.8; O2SAT 96
[2025-09-25 04:00] VITALS: BP 145/68; TEMP 98.7; O2SAT 95
[2025-09-25 07:12] LABS: PLATELET COUNT (AUTO) 155 K/uL (150-450); RED BLOOD CELL COUNT(AUTO) 3.22 MIL/uL (4.0-5.2); RED CELL DISTRIBUTION WIDTH 15.4 % (11.5-15.0); WHITE BLOOD COUNT (AUTO) 5.9 K/uL (4.3-11.0)
[2025-09-25 07:16] LABS: ASPARTATE AMINOTRANSFERASE 14.0 U/L (15-37); CALCIUM, SERUM 8.8 mg/dL (8.5-10.1); CREATININE 1.0 mg/dL (0.6-1.3); PHOSPHORUS 3.1 mg/dL (2.5-4.9); SODIUM SERUM 140.0 mmol/L (136-145); TOTAL PROTEIN, SERUM 7.0 g/dL (6.4-8.2); UREA NITROGEN, BLOOD 24.0 mg/dL (7-18)
[2025-09-25 08:00] VITALS: BP 160/76; TEMP 99.9; O2SAT 98
[2025-09-25] MEDS: POTASSIUM CHLORIDE 20 MEQ TAB.PRT.SR PO SCH (09:35)
[2025-09-25] MEDS ORDERED: MEGE40TA5 PO (09:39)
[2025-09-25 10:01] LABS: EOSINOPHILS % (MANUAL) 2 % (0-4); LYMPHOCYTES % (MANUAL) 38 % (16-48); MONOCYTES % (MANUAL) 7 % (0-11.0); NEUTROPHILS % (MANUAL) 53 (42-76)
[2025-09-25 10:02] LABS: PLATELET ESTIMATE ADEQUATE
[2025-09-25 12:00] VITALS: BP 145/82; TEMP 98.8; O2SAT 98
[2025-09-27] MEDS ORDERED: Medication Not On Formulary EA (Semaglutide (Ozempic) 0.5 MG) SQ SCH (09:00)
== END 2025-09-25 14:11 | disposition home health service (06) | DRG 871 ==
LOC: ER 19:23 → TELE1 21:29 → MEDSG1 09-22 10:00
PROVIDERS: ATTEND Nurse Practitioner Family
DX: A41.9 Sepsis, unspecified organism (principal); N17.0 Acute kidney failure with tubular necrosis; E87.20 Acidosis, unspecified; E44.1 Mild protein-calorie malnutrition; E11.22 Type 2 diabetes mellitus with diabetic chronic kidney disease; D64.9 Anemia, unspecified; D69.6 Thrombocytopenia, unspecified; N39.0 Urinary tract infection, site not specified; B96.89 Other specified bacterial agents as the cause of diseases classified elsewhere; I12.9 Hypertensive chronic kidney disease with stage 1 through stage 4 chronic kidney disease, or unspecified chronic kidney disease; Z68.39 Body mass index [BMI] 39.0-39.9, adult; F39 Unspecified mood [affective] disorder; G20.A1 Parkinson's disease without dyskinesia, without mention of fluctuations; N18.9 Chronic kidney disease, unspecified; R62.7 Adult failure to thrive; E78.5 Hyperlipidemia, unspecified; G89.29 Other chronic pain; R26.2 Difficulty in walking, not elsewhere classified; Z90.49 Acquired absence of other specified parts of digestive tract; Z88.2 Allergy status to sulfonamides; Z88.8 Allergy status to other drugs, medicaments and biological substances; Z88.6 Allergy status to analgesic agent; Z91.041 Radiographic dye allergy status; Z91.013 Allergy to seafood; Z79.82 Long term (current) use of aspirin; Z79.84 Long term (current) use of oral hypoglycemic drugs; Z79.01 Long term (current) use of anticoagulants; Z79.4 Long term (current) use of insulin; Z79.899 Other long term (current) drug therapy; E88.09 Other disorders of plasma-protein metabolism, not elsewhere classified; E66.9 Obesity, unspecified; E87.6 Hypokalemia; Z74.09 Other reduced mobility; Z99.3 Dependence on wheelchair; Z87.2 Personal history of diseases of the skin and subcutaneous tissue; Z87.440 Personal history of urinary (tract) infections; M89.8X9 Other specified disorders of bone, unspecified site
CPT/HCPCS: 36415; 71045-TC; 80048-TC; 80053-TC; 80076-TC; 81001; 82962-TC; 83605-TC; 83690-TC; 83735-TC; 84100-TC; 84439-TC; 84443-TC; 85025-TC; 85027-TC; 87040-TC; 87081-TC; 87086-TC; 93307-TC; 93970-TC; A4223; G0378; J1650; J1815; J2405; J2543; J7030; J7050; J7060

== ENCOUNTER 2025-10-06 21:30 | Inpatient (IN) | payer MEDICARE, OTHER ==
[~2025-10-06] VITALS: Ht 165.1 cm; Wt 76.0 kg
[~2025-10-06 21:30] MED LIST changes: +CHLO25TA2 PO; -COLL30OI TP; +DIVA-78 PO; -DIVA250T4 PO; -DIVA500T2 PO; -EMPA10TA PO; -ENOX40DI SQ; -FERR325T28 PO; -FURO20TA4 PO; -ICOS1CAP PO; -INSU100I30 SQ; -LEVO5TAB13 PO; +LOSA100T3 PO; -LOSA50TA39 PO; +MEGE40TA5 PO; +MIRT-91 PO; -MULT-24 PO; +MULT-594 PO; -POLY17PO29 PO; -POTA10TA10 PO; -PREG25CA PO; -Quetiapine Fumarate PO; -SEMA0.25 SQ; -SERT25TA5 PO; -TRAM50TA2 PO; -TRAZ-252 PO; +TRIA60LO8 TP
[2025-10-06 22:45] LABS: PLATELET COUNT (AUTO) 176 K/uL (150-450); RED BLOOD CELL COUNT(AUTO) 3.31 MIL/uL (4.0-5.2); RED CELL DISTRIBUTION WIDTH 16.1 % (11.5-15.0); WHITE BLOOD COUNT (AUTO) 5.6 K/uL (4.3-11.0)
[2025-10-06 22:48] LABS: CALCIUM, SERUM 8.9 mg/dL (8.5-10.1); CREATININE 1.3 mg/dL (0.6-1.3); SODIUM SERUM 137.0 mmol/L (136-145); UREA NITROGEN, BLOOD 79.0 mg/dL (7-18)
[2025-10-06 23:33] LABS: APPEARANCE,URINE CLOUDY (CLEAR); BLOOD, URINE TRACE-INTA Ery/uL (NEGATIVE); LEUKOCYTE ESTERASE ,URINE 2+ (NEGATIVE); NITRITE, URINE NEGATIVE (NEGATIVE); UGLUCOSE 3+ mg/dL (NEGATIVE)
[2025-10-06] MEDS: IV NS 0.9% 1,000 ML BAG IV ONE (23:35)
[2025-10-06 23:47] LABS: ADD URINE CULTURE YES; YEAST,URINE Moderate /HPF (None Seen)
[2025-10-06 23:48] LABS: SQUAMOUS EPITHELIAL CELL,UR 0-2 /HPF (None Seen)
[2025-10-06] MEDS ORDERED: CEFTRIAXONE 1GM BAG (ER ONLY) 50 ML IV ONE (23:57)
[2025-10-07] MEDS ORDERED: MAGNESIUM HYDROXIDE 30 ML UDC PO PRN
[2025-10-07] MEDS ORDERED: ONDANSETRON HCL/PF 4 MG/2 ML VIAL IVP PRN
[2025-10-07 00:03] LABS: INR 1.05 (0.91-1.10)
[2025-10-07] MEDS: CEFTRIAXONE 1GM BAG (ER ONLY) 1 GM/50 ML PIGGYBACK IV ONE (00:04)
[2025-10-07 00:20] LABS: TOTAL PROTEIN, SERUM 6.9 g/dL (6.4-8.2)
[2025-10-07 00:33] LABS: ASPARTATE AMINOTRANSFERASE 18 U/L (15-37)
[2025-10-07 00:47] LABS: LACTIC ACID 3.1 mmol/L (0.4-2.0)
[2025-10-07 00:57] VITALS: BP 129/74; TEMP 97.5; O2SAT 100
[2025-10-07] MEDS: CEFTRIAXONE 1 G in IV D5W 50 ML IV SCH (00:57)
[2025-10-07] MEDS: IV NS 0.9% 1,000 ML IV PRN (01:46)
[2025-10-07 04:00] VITALS: BP 115/53; TEMP 97.7; O2SAT 100
[2025-10-07 07:30] LABS: PLATELET COUNT (AUTO) 165 K/uL (150-450); RED BLOOD CELL COUNT(AUTO) 3.44 MIL/uL (4.0-5.2); RED CELL DISTRIBUTION WIDTH 16.3 % (11.5-15.0); WHITE BLOOD COUNT (AUTO) 7.1 K/uL (4.3-11.0)
[2025-10-07 07:38] LABS: CALCIUM, SERUM 8.9 mg/dL (8.5-10.1); CREATININE 1.1 mg/dL (0.6-1.3); PHOSPHORUS 3.1 mg/dL (2.5-4.9); SODIUM SERUM 140.0 mmol/L (136-145); UREA NITROGEN, BLOOD 70.0 mg/dL (7-18)
[2025-10-07] MEDS: PANTOPRAZOLE 40 MG TABLET.DR PO SCH (07:39)
[2025-10-07 08:00] VITALS: BP 143/81; TEMP 98.1; O2SAT 94
[2025-10-07] MEDS ORDERED: FURO20TA4 PO (08:11)
[2025-10-07] MEDS ORDERED: LEVO5TAB13 PO (08:11)
[2025-10-07] MEDS ORDERED: METH750T3 PO (08:11)
[2025-10-07] MEDS ORDERED: INSU100V39 SQ (08:11)
[2025-10-07] MEDS ORDERED: NUT.237L70 PO (08:11)
[2025-10-07] MEDS ORDERED: BISA10SU11 RC (08:11)
[2025-10-07] MEDS ORDERED: PREG50CA PO (08:11)
[2025-10-07] MEDS ORDERED: LOPE2CAP40 PO (08:11)
[2025-10-07] MEDS ORDERED: AMIN30LI24 PO (08:11)
[2025-10-07] MEDS ORDERED: DOCU100C36 PO (08:11)
[2025-10-07] MEDS ORDERED: ACET325T53 PO (08:11)
[2025-10-07] MEDS ORDERED: SEMA0.25 SQ (08:11)
[2025-10-07] MEDS ORDERED: DICL100G34 TP (08:11)
[2025-10-07] MEDS ORDERED: ASPI-1169 PO (08:11)
[2025-10-07] MEDS ORDERED: ASCO500T10 PO (08:11)
[2025-10-07] MEDS ORDERED: OMEG-72 PO (08:11)
[2025-10-07] MEDS ORDERED: BENZ1TAB7 PO (08:11)
[2025-10-07] MEDS ORDERED: HYDR-500 PO (08:11)
[2025-10-07] MEDS ORDERED: FERR325T24 PO (08:11)
[2025-10-07] MEDS ORDERED: ATOR40TA PO (08:11)
[2025-10-07] MEDS ORDERED: QUET200T PO (08:11)
[2025-10-07] MEDS ORDERED: DIVA-76 PO (08:11)
[2025-10-07] MEDS ORDERED: INSU100V7 SQ (08:11)
[2025-10-07] MEDS ORDERED: SENN-261 PO (08:11)
[2025-10-07] MEDS ORDERED: CARB1TAB21 PO (08:11)
[2025-10-07] MEDS ORDERED: MAGN400O6 PO (08:11)
[2025-10-07] MEDS ORDERED: EMPA10TA PO (08:11)
[2025-10-07] MEDS ORDERED: CHOL100062 PO (08:11)
[2025-10-07] MEDS ORDERED: TRAM50TA2 PO (08:12)
[2025-10-07] MEDS ORDERED: SERT25TA PO (08:12)
[2025-10-07] MEDS ORDERED: TRAZ-257 PO (08:12)
[2025-10-07] MEDS: ENOXAPARIN SODIUM 40 MG/0.4 ML DISP.SYRIN SQ SCH (08:33)
[2025-10-07] MEDS: POTASSIUM CHLORIDE 20 MEQ TAB.PRT.SR PO SCH (09:52)
[2025-10-07] MEDS: MAG HYDROX/AL HYDROX/SIMETH 30 ML UDC PO PRN (15:03)
[2025-10-07 16:00] VITALS: BP 143/60; TEMP 98.4; O2SAT 100
[2025-10-07] MEDS: ACETAMINOPHEN 325 MG TABLET PO PRN (17:53)
[2025-10-07 20:00] VITALS: BP 144/68; TEMP 98.8
[2025-10-07 20:36] VITALS: BP 144/68; TEMP 98.8; O2SAT 98
[2025-10-08] MEDS: CEFTRIAXONE 1 G in IV D5W 50 ML IV SCH (00:20)
[2025-10-08 07:00] VITALS: BP 143/59; TEMP 99.1; O2SAT 98
[2025-10-08 07:18] LABS: PLATELET COUNT (AUTO) 184 K/uL (150-450); RED BLOOD CELL COUNT(AUTO) 3.39 MIL/uL (4.0-5.2); RED CELL DISTRIBUTION WIDTH 16.2 % (11.5-15.0); WHITE BLOOD COUNT (AUTO) 4.5 K/uL (4.3-11.0)
[2025-10-08 07:30] LABS: CALCIUM, SERUM 9.2 mg/dL (8.5-10.1); CREATININE 1.1 mg/dL (0.6-1.3); SODIUM SERUM 141.0 mmol/L (136-145); UREA NITROGEN, BLOOD 45.0 mg/dL (7-18)
[2025-10-08 08:00] VITALS: BP 143/59; TEMP 98; O2SAT 97
[2025-10-08] MEDS ORDERED: LACT1CAP61 PO (10:12)
[2025-10-08] MEDS ORDERED: CEPH500C2 PO (10:12)
[2025-10-08] MEDS ORDERED: FLUC200T PO (10:12)
[2025-10-08 14:18] LABS: EOSINOPHILS % (MANUAL) 1 % (0-4); LYMPHOCYTES % (MANUAL) 19 % (16-48); MONOCYTES % (MANUAL) 2 % (0-11.0); NEUTROPHILS % (MANUAL) 78 (42-76); PLATELET ESTIMATE ADEQUATE
== END 2025-10-08 13:34 | DRG 690 ==
LOC: ER 21:38 → TELE 23:58 → MED 10-07 05:07
PROVIDERS: ADMIT Nurse Practitioner Family; ATTEND Nurse Practitioner Acute Care
DX: N39.0 Urinary tract infection, site not specified (principal); E87.20 Acidosis, unspecified; E44.1 Mild protein-calorie malnutrition; E88.09 Other disorders of plasma-protein metabolism, not elsewhere classified; G20.A1 Parkinson's disease without dyskinesia, without mention of fluctuations; N17.9 Acute kidney failure, unspecified; E11.65 Type 2 diabetes mellitus with hyperglycemia; B96.89 Other specified bacterial agents as the cause of diseases classified elsewhere; D64.9 Anemia, unspecified; E66.9 Obesity, unspecified; I10 Essential (primary) hypertension; F31.9 Bipolar disorder, unspecified; E86.0 Dehydration; E78.5 Hyperlipidemia, unspecified; E87.6 Hypokalemia; R26.2 Difficulty in walking, not elsewhere classified; G89.29 Other chronic pain; Z90.49 Acquired absence of other specified parts of digestive tract; Z88.2 Allergy status to sulfonamides; Z88.6 Allergy status to analgesic agent; Z91.041 Radiographic dye allergy status; Z91.013 Allergy to seafood; Z79.82 Long term (current) use of aspirin; Z79.84 Long term (current) use of oral hypoglycemic drugs; Z79.899 Other long term (current) drug therapy; Z68.29 Body mass index [BMI] 29.0-29.9, adult; R79.9 Abnormal finding of blood chemistry, unspecified
CPT/HCPCS: 36415; 71045-TC; 71250-TC; 76770-TC; 80048-TC; 80076-TC; 81001; 83605-TC; 83735-TC; 84100-TC; 84443-TC; 85025-TC; 85027-TC; 85730-TC; 87040-TC; 87081-TC; 87086-TC; A4223; G0378; J0696; J1650; J7030; J7060